=== PATIENT | female | born 1975 | race Caucasian/White ===

== ENCOUNTER 2016-10-08 10:12 | Emergency (ER) | payer BC ==
[~2016-10-08] VITALS: Ht 160 cm; Wt 112.8 kg
[~2016-10-08 10:12] MED LIST: ALBU18HF2 IH; PHENTERMINE HCL; PRED10TA PO
--- OUTSIDE RECORDS SUMMARY | 2016-10-08 10:16 | XMS REPORT | Continuity of Care Document ---
Author Author [facility] Organization [facility] Address Unknown Phone Unavailable Support Name Relationship Address Phone FABIAN FIGUEROA MD Caregiver [address] [place] [address] [place] [phone] SALVADOR TORRES Next Of Kin [address] [facility] [address] [place] [address] Advance Directives Directive Response Recorded Date/Time Advanced Directives Type None 09/17/14 7:07am Problems Medical Problems Problem Onset Date Status Viral upper respiratory infection Unknown Active Viral upper respiratory infection Unknown Active Medications Medication Dose Route Sig Days/Qty Instructions Order Date Discontinued Date Status [Phentermine Hcl] 09/17/14 Active Albuterol Sulfate 2-4 Puff IH EVERY 4 HOURS For SHORTNESS OF AIR/WHEEZING 1 Qty 09/17/14 Active Prednisone 10 Mg PO DIRECTED 24 Qty 5 Tablets by mouth daily for 2 days THEN, 09/17/14 Active Social History Social History Problem Response Recorded Date/Time Hx Alcohol Use No 09/17/2014 7:15am Tobacco Usage none 09/17/2014 7:27am Query Response Start Date Stop Date Smoking Status Former smoker Hospital Discharge Instructions No hospital discharge instructions. Plan of Care No plan of care. Functional Status Query Response Date Recorded Physical Hygiene Self September 17, 2014 7:15am Disabilities None September 17, 2014 7:15am Devices Used None September 17, 2014 7:15am Dressing Self September 17, 2014 7:15am Ambulation Self September 17, 2014 7:15am Diet Self September 17, 2014 7:15am Mental Status Alert Oriented September 17, 2014 8:52am Disabilities None September 17, 2014 7:15am Devices Used None September 17, 2014 7:15am Physical Hygiene Self September 17, 2014 7:15am Dressing Self September 17, 2014 7:15am Ambulation Self September 17, 2014 7:15am Diet Self September 17, 2014 7:15am Allergies, Adverse Reactions, Alerts No known allergies. Immunizations No immunization records. Vital Signs Acute Vital Signs Vital Response Date/Time Temperature (Fahrenheit) 98.1 deg F (96.8 - 99.1) Temperature (Calculated Celsius) 36.10534 degrees C (36.0 - 37.3) Pulse Rate (adult) 68 bpm (60 - 100) Respiratory Rate 20 breaths/min (10 - 20) O2 Sat by Pulse Oximetry 99 % (90 - 100) Blood Pressure 154/74 mm Hg Height 5 ft 3 in Weight 308 lb Body Mass Index 54.0 kg/m^2 Results Test Source Date Result Interp. Ref. Range Comments Mycoplasma pneumoniae (PCR) September 17, 2014 7:10am Not detected - Has specimen been collected/obtained? Y Chlamydia pneumoniae DNA (PCR) September 17, 2014 7:10am Not detected - Has specimen been collected/obtained? Y Bordetella parapertussis DNA (PCR) September 17, 2014 7:10am Not detected - Has specimen been collected/obtained? Y Respiratory Syncytial Virus (PCR) September 17, 2014 7:10am Not detected - Has specimen been collected/obtained? Y Parainfluenza Type 4 (PCR) September 17, 2014 7:10am Not detected - Has specimen been collected/obtained? Y Parainfluenza Type 3 (PCR) September 17, 2014 7:10am Not detected - Has specimen been collected/obtained? Y Parainfluenza Type 2 (PCR) September 17, 2014 7:10am Not detected - Has specimen been collected/obtained? Y Parainfluenza Type 1 (PCR) September 17, 2014 7:10am Not detected - Has specimen been collected/obtained? Y Influenza Virus Type B (PCR) September 17, 2014 7:10am Not detected - Has specimen been collected/obtained? Y Influenza Virus Type A (PCR) September 17, 2014 7:10am Not detected - Has specimen been collected/obtained? Y Enterovirus/Rhinovirus (PCR) September 17, 2014 7:10am Not detected - Has specimen been collected/obtained? Y Human Metapneumovirus (PCR) September 17, 2014 7:10am Not detected - Has specimen been collected/obtained? Y Coronavirus Type OC43 (PCR) September 17, 2014 7:10am Not detected - Has specimen been collected/obtained? Y Coronavirus Type NL63 (PCR) September 17, 2014 7:10am Not detected - Has specimen been collected/obtained? Y Coronavirus Type HKU1 (PCR) September 17, 2014 7:10am Not detected - Has specimen been collected/obtained? Y Coronavirus Type 229E (PCR) September 17, 2014 7:10am Not detected - Has specimen been collected/obtained? Y Adenovirus (PCR) September 17, 2014 7:10am Not detected - Has specimen been collected/obtained? Y Hepatitis B Surface Ab Concentrat September 01, 2014 11:48am Negative - Lab Scanned Report September 06, 2014 12:46pm REFERENCE LAB - Measles/Mumps/Rubella Immunity September 01, 2014 11:48am - - . <0.91= Negative. 0.91 - 1.09=Equivocal . >1.09=Positive Positive results suggest response to immunization or prior exposure. Measles IgG performed at [facility], [address] [place] [address] Emergency Veterinarian Renaldo Olivarez, Mumps IgG Antibody Index September 01, 2014 11:48am 0.94 OD Ratio L - Mumps IgG performed at [facility], [address] [place], [place] [address]Medical Director Renaldo Olivarez, Mumps Virus IgG Antibody September 01, 2014 11:48am Equivocal H - Rubella Screen September 01, 2014 11:48am Positive - Rubeola (Measles) IgG Ab Index September 01, 2014 11:48am 1.32 OD Ratio - Measles IgG performed at [facility], [address] [place], [place] [address]Medical Director Renadlo Olivarez, Rubeola (Measles) IgG Antibody September 01, 2014 11:48am Positive - TB Test (T-Spot) September 01, 2014 11:48am Negative - It is recommended that Borderline and Invalid results beretested with a new speicmen. T-SPOT TB tested at [facility], [address] [place] [address]. CLIA#[id number] Varicella-Zoster IgG Ab Index Value September 01, 2014 11:48am 2.25 OD Ratio - Varicella Zoster IGG performed at [facility], [address] [place] [address] Emergency Veterinarian Renaldo Olivarez DO Varicella-Zoster IgG Antibody September 01, 2014 11:48am Positive - Name: SAFIA RUGGIERO Jenniffer Unit #: [id number] : 1975 Sex: F Loc / Svc: ED DOS: 09/17/14 Signed Report #: [id number] DIAGNOSTIC IMAGING REPORT TYPE OF EXAM: CHEST, PA & LATERAL Dictated By: CELINE GAR MD INDICATION: ITS.REASON: COUGH, FEVER CHEST 2-VIEWS UPRIGHT (PA & LAT) COMPARISON: None FINDINGS: The lungs are clear without evidence of focal abnormal airspace opacity. There is no pleural effusion or pneumothorax. The heart size, mediastinal contours and pulmonary vascularity are within normal limits. There is no significant skeletal abnormality. IMPRESSION: No acute cardiopulmonary disease. . Procedures No known history of procedures. Encounters Encounter Location Date/Time Registered Emergency Room [facility] 09/17/14 7:03am Recent Diagnosis
[2016-10-08 10:18] VITALS: Ht 160 cm; Wt 112.8 kg
[2016-10-08] MEDS ORDERED: PHEN-412 PO (10:55)
[2016-10-08] MEDS ORDERED: SIME125C PO (10:57)
[2016-10-08] MEDS ORDERED: IBUP-1724 PO (10:57)
--- NOTE | 2016-10-08 11:10 | NUR ---
REPORT REPORT TO AND CARE ASSUMED BY VAHID LUTZ
--- NOTE | 2016-10-08 11:20 | ERPDOC ---
Departure Disposition Decision Date: Oct 08, 2016 Disposition Decision Time: 13:52 Disposition: 01 DISCHARGED HOME, SELF-CARE Impression Impression Impression: Primary Impression: Gastroenteritis Severity: Moderate Condition: Stable Seen By: Physician only Patient Instructions: Gastroenteritis (ED) Problems/Meds/Labs Reviewed?: Yes Medications reviewed and manag: Yes Departure Forms: Return to Work/School Permit Return to Work/School Date: Oct 10, 2016 Follow up care ordered?: Yes Mental Status: Alert, Oriented Scripts Hydrocodone/Apap ([place] 5-325 Tablet) 5-325 Tablet 1-2 TAB PO Q6H Y for PAIN, #10 TAB Prov: SAJAN BELL MD 10/08/16 Ondansetron (Zofran Odt) 4 Mg Tab.rapdis 4 MG PO Q6HR Y for NAUSEA &/OR VOMITING, #10 TAB Oral disintegrating tablet Prov: SAJAN BELL MD 10/08/16 HPI - Abdominal Pain General Chief Complaint: Abdominal Pain Stated Complaint: ABD PAIN Time Seen by Provider: 11:19 Source: patient History/Exam Limitations: no limitations HPI - Abdominal Pain Initial Comments Patient is a 40-year-old female presents emergency room for evaluation of abdominal pain nausea vomiting. Patient was at a picnic yesterday, ate some food that she admits was sitting out for a long time. Last night patient developed some epigastric abdominal pain with associated nausea this morning started having emesis. Patient unable to keep down food or fluid this morning. Patient decided present to the ER for evaluation. Occurred At: home Onset: Rapid Duration: 6-12 hrs Pain Scale: Now & Worst: 8/10 Quality: sharpness Location: epigastric Allergies: Coded Allergies: No Known Allergies (Unverified , 10/08/16) Past History Past Medical History Metabolic: diabetes Surgical History Denies Surgeries Reproductive/: tubal ligation Social History Smoking Status: Current some day smoker Substance Use Type: does not use Alcohol Intake: none Review of Systems Constitutional Constitutional: appetite decrease, weakness, DENIES: chills, dizziness, fever Eyes Vision: DENIES: loss of visual ayers ENMT Sinuses: DENIES: congestion Mouth/Throat: DENIES: sore throat Cardiovascular Cardiac: DENIES: chest pain, dyspnea on exertion Pulmonary Respiratory: DENIES: cough, sputum GI Upper Abdomen: nausea, pain, vomiting Lower Abdomen: pain, DENIES: constipation, diarrhea General: DENIES: frequency, urgency Musculoskeletal General: DENIES: cramps, pain, weakness Integumentary Skin: DENIES: color change, itching, rash Endocrine Endocrine: DENIES: heat/cold intolerance Hematologic/Lymphatic Hematologic/Lymphatic: DENIES: anemia Physical Exam General General Nourishment: well nourished, well developed, obese General Body Habitus: well groomed Vitals and Pain First Documented Vital Signs Date Time Temp Pulse Resp B/P Pulse Ox O2 Delivery O2 Flow Rate FiO2 10/08/16 10:18 98.1 54 24 165/72 100 Room Air Weight: Kilograms: 112.800 Height (feet): 5 Height (inches): 3.00 Triage Pain Scale: RN VS reviewed by Provider: Yes Eyes (brief) Eyes Brief: found: EOMI ENMT (brief) ENMT Brief: FOUND: mucosa moist, normal dentition, NOT FOUND: nasal erythema, pharnyx erythema, tonsillar deviation Neck (brief) Neck: NOT FOUND: adenopathy, spasm, tenderness Respiratory (brief) Respiratory: FOUND: clear all ayers, equal bilaterally, NOT FOUND: rales, wheezes Cardiovascular (brief) Cardiac: FOUND: regular rate, regular rhythm Capillary Refill: <2 sec Abdomen (brief) Abdominal Brief: FOUND: bowel normo active x4, soft, tender (mild diffuse tenderness not localizing), NOT FOUND: distended Lymphatic (brief) Lymphatic Brief: NOT FOUND: adenopathy Musculoskeletal (brief) Musculoskeletal Brief: NOT FOUND: spasm, tenderness Integumentary (brief) Integumentary Brief: FOUND: dry, pink, warm, NOT FOUND: rash Neurologic (brief) Neurological Brief: FOUND: CN w/o gross def to obs, motor-no gross deficits, sensory-no gross deficits Psychiatric (brief) Psychiatric Brief: FOUND: alert, oriented Differential Diagnoses Considering: Appendicitis, Aortic Dissection, Biliary Colic, Bowel Obstruction , Cholecystitis, Constipation, Diverticulitis, Gastroenteritis, GERD, Hernia, IBS, Ileus, Neoplasm, Pancreatitis, Pneumonia, Pyelonephritis, Renal Colic, Ulcer, Ulcerative Colitis, UTI, Volvulus Progress Results/Orders Orders Procedure Category Date Status Time Iv Lock (Ed Only) EDM 10/08/16 Transmitted 11:23 Cbc W/Auto LAB 10/08/16 Complete Diff-Reflex Manual 11:23 Cmp - Comprehensive LAB 10/08/16 Complete Metabolic 11:23 Lipase LAB 10/08/16 Complete 11:23 Normal Saline (Normal PHA 10/08/16 Complete Saline Iv) 11:30 Ondansetron Inj PHA 10/08/16 Complete (Zofran) 11:30 Morphine Sulfate PHA 10/08/16 Complete (Morphine) 11:30 UA, LAB 10/08/16 Complete Dip&Micro(Complete) & 11:32 Kub W/Upright RAD 10/08/16 Resulted 12:07 Lab Results Laboratory Tests Test 10/08/16 11:32 10/08/16 11:40 Urine Collection Type Voided-not cc-midstr Urine Color Red Urine Turbidity Sl cloudy Urine pH 7.0 Urine Specific [place] 1.020 Urine Protein 1+ Urine Glucose (UA) Negative Urine Ketones Negative Urine Blood 3+ Urine Nitrite Negative Urine Bilirubin Negative Urine Urobilinogen 0.2EU/DL Urine Leukocyte Esterase Negative Urine RBC 50-200/HPF Urine WBC 3-5/HPF Urine Squamous Epithelial Cells 0-5 Urine Bacteria Trace Urine Culture Indicated Cult not indicated White Blood Count 8.6T/MM3 Red Blood Count 3.93M/MM3 Hemoglobin 8.3GM/DL Hematocrit 27.8% Mean Corpuscular Volume 70.7UM3 Mean Corpuscular Hemoglobin 21.1UUG Mean Corpuscular Hemoglobin Concent 29.9GM/DL RDW Standard Deviation 42.4FL Platelet Count 220T/MM3 Mean Platelet Volume 11.7UM3 Immature Granulocyte % (Auto) 0.1% Neutrophils (%) (Auto) 77.8% Lymphocytes (%) (Auto) 17.9% Monocytes (%) (Auto) 3.9% Eosinophils (%) (Auto) 0.2% Basophils (%) (Auto) 0.1% Absolute Immature Granulocyte (auto 0.01T/MM3 Absolute Neutrophils (auto) 6.7T/MM3 Absolute Lymphocytes (auto) 1.5T/MM3 Absolute Monocytes (auto) 0.3T/MM3 Absolute Eosinophils (auto) 0.0T/MM3 Absolute Basophils (auto) 0.0T/MM3 Turbidity < 20 Sodium Level 142MEQ/L Potassium Level 3.7MEQ/L Chloride Level 106MEQ/L Carbon Dioxide Level 25MEQ/L Anion Gap 11MEQ/L Blood Urea Nitrogen 16.0MG/DL Creatinine 0.7MG/DL Glomerular Filtration Rate Calc 93 BUN/Creatinine Ratio 23RATIO Glucose Level 104MG/DL Calculated Osmolality 274MOSM/KG Calcium Level 8.7MG/DL Total Bilirubin 0.40MG/DL Icterus Index < 2 Aspartate Amino Transf (AST/SGOT) 14U/L Alanine Aminotransferase (ALT/SGPT) 29U/L Alkaline Phosphatase 66U/L Total Protein 6.5G/DL Albumin 3.5G/DL Globulin 3.0G/DL Albumin/Globulin Ratio 1.2RATIO Lipase 74U/L Chemistry Specimen Hemolysis < 15 Medications Current ED Medications Sodium Chloride (Normal Saline IV) 1,000 ml @ 999 mls/hr Q1H1M ONCE IV Last administered on 10/08/16 11:43; Start 10/08/16 at 11:30; Stop 10/08/16 at 12:30 ; Status DC Ondansetron HCl (Zofran) 4 mg O ONCE IV Last administered on 10/08/16 11:43; Start 10/08/16 at 11:30; Stop 10/08/16 at 11:31; Status DC Morphine Sulfate (Morphine) 4 mg O ONCE IV Last administered on 10/08/16 11: 43; Start 10/08/16 at 11:30; Stop 10/08/16 at 11:31; Status DC Xray Xray : Xray: KUB Upright Interpretation: Normal, Reviewed Written Report SAJAN BELL MD Oct 08, 2016 11:19
[2016-10-08] MEDS ORDERED: MORPHINE SULFATE 4 MG SYRINGE IV ONE (11:30)
[2016-10-08] MEDS ORDERED: NORMAL SALINE 1,000 ML IV ONE (11:30)
[2016-10-08] MEDS ORDERED: ONDANSETRON 4mg/2ml INJECTION IV ONE (11:30)
--- OUTSIDE RECORDS SUMMARY | 2016-10-08 11:30 | XMS REPORT | Continuity of Care Document ---
Author Author [facility] Organization [facility] Address Unknown Phone Unavailable Support Name Relationship Address Phone FABIAN FIGUEROA MD Caregiver [address] [place] [address] [place] [phone] SALVADOR TORRES Next Of Kin [address] [facility] [address] [place] [address] Advance Directives Directive Response Recorded Date/Time Advanced [...] F (96.8 - 99.1) Temperature (Calculated Celsius) 36.08689 degrees C (36.0 - 37.3) Pulse Rate [...] or prior exposure. Measles IgG performed at [facility], [address] [place] [address] Die Stamping Press Operator Renaldo Olivarez, Mumps IgG Antibody Index September 01, 2014 11:48am 0.94 OD Ratio L - Mumps IgG performed at [facility], [address] [place], [place] [address]Medical Director Renaldo Olivarez, Mumps Virus IgG Antibody September 01, 2014 11:48am Equivocal H - Rubella Screen September 01, 2014 11:48am Positive - Rubeola (Measles) IgG Ab Index September 01, 2014 11:48am 1.32 OD Ratio - Measles IgG performed at [facility], [address] [place], [place] [address]Medical Director Renaldo Olivarez, Rubeola (Measles) IgG Antibody September 01, 2014 11:48am Positive - TB Test (T-Spot) September 01, 2014 11:48am Negative - It is recommended that Borderline and Invalid results beretested with a new speicmen. T-SPOT TB tested at [facility], [address] [place] [address]. CLIA#[id number] Varicella-Zoster IgG Ab Index Value September 01, 2014 11:48am 2.25 OD Ratio - Varicella Zoster IGG performed at [facility], [address] [place] [address] Die Stamping Press Operator Renaldo Olivarez DO Varicella-Zoster IgG Antibody September 01, 2014 11:48am Positive - Name: SAFIA RUGGIERO Jenniffer Unit #: [id number] : 1975 Sex: F Loc / Svc: ED DOS: 09/17/14 Signed Report #: [id number] DIAGNOSTIC IMAGING REPORT TYPE OF EXAM: CHEST, [...] Encounters Encounter Location Date/Time Registered Emergency Room [facility] 09/17/14 7:03am Recent Diagnosis
[2016-10-08 11:52] LABS: BLOOD, URINE 3+ (NEGATIVE); COLOR,URINE RED (YELLOW); LEUKOCYTE ESTERASE ,URINE NEGATIVE (NEGATIVE); NITRITE,URINE NEGATIVE (NEGATIVE); UROBILINOGEN,URINE 0.2 EU/DL (NORMAL)
[2016-10-08 11:55] LABS: BASOPHILS % (AUTO) 0.1 % (0-2); EOSINOPHILS % (AUTO) 0.2 % (0-4); HCT - HEMATOCRIT 27.8 % (36-46); HGB - HEMOGLOBIN 8.3 GM/DL (12-16); IMMATURE GRANULOCYTE # (AUTO) 0.01 T/MM3 (0.00-0.03); IMMATURE GRANULOCYTE % (AUTO) 0.1 % (0.0-0.5); LYMPHOCYTES # (AUTO) 1.5 T/MM3 (1-4.8); LYMPHOCYTES % (AUTO) 17.9 % (23-45); MEAN CORPUSCULAR HGB 21.1 UUG (26-34); MEAN CORPUSCULAR HGB CONC(MCHC 29.9 GM/DL (31-37); MEAN CORPUSCULAR VOLUME 70.7 UM3 (80-100); MEAN PLATELET VOLUME 11.7 UM3 (9.4-12.4); MONOCYTES # (AUTO) 0.3 T/MM3 (0-0.8); MONOCYTES % (AUTO) 3.9 % (0-9.0); NEUTROPHILS #(AUTO)-ABSOLUTE 6.7 T/MM3 (1.8-7.7); NEUTROPHILS % (AUTO) 77.8 % (33-66); RED BLOOD COUNT 3.93 M/MM3 (4.00-5.20); WBC - WHITE BLOOD COUNT 8.6 T/MM3 (4.5-11.0)
[2016-10-08 12:02] LABS: RBC,URINE 50-200 /HPF (0-3); SQUAMOUS EPITHELIAL CELL,UR 0-5
[2016-10-08 12:03] LABS: ALBUMIN 3.5 G/DL (3.5-5.0); ALBUMIN/GLOBULIN RATIO 1.2 RATIO (1.1-2.2); ALKALINE PHOSPHATASE 66 U/L (38-126); ALT (SGPT) 29 U/L (9-52); ANION GAP 11 MEQ/L (5-15); AST (SGOT) 14 U/L (14-36); BUN/CREATININE RATIO 23 RATIO (6-26); CALCIUM 8.7 MG/DL (8.4-10.2); CHLORIDE 106 MEQ/L (98-107); CO2 - CARBON DIOXIDE 25 MEQ/L (22-30); CREATININE 0.7 MG/DL (0.7-1.2); GLOMERULAR FILTRATION RATE 93; GLUCOSE 104 MG/DL (65-110); LIPASE 74 U/L (23-300); POTASSIUM 3.7 MEQ/L (3.6-5); SODIUM 142 MEQ/L (134-144); TOTAL PROTEIN 6.5 G/DL (6.3-8.2)
[2016-10-08 12:03] LABS: BACTERIA,URINE TRACE (NEGATIVE)
--- NOTE | 2016-10-08 13:12 | DI ---
EXAM: KUB W/UPRIGHT DICTATION LOCATION: [facility] INDICATION: ITS.REASON: epigastric abdominal pain COMPARISON STUDY: None available. FINDINGS: Abdomen: The bowel gas pattern is unremarkable. There is no evidence for bowel obstruction or free intraperitoneal air. No abnormal radiopacities overlying the abdomen. The lung bases are clear. Skeletal Structures: The visualized skeletal structures are within normal limits for the patient's age. IMPRESSION: 1. Nonobstructive bowel gas pattern. .
[2016-10-08] MEDS ORDERED: ONDA4TAB7 PO (13:54)
[2016-10-08] MEDS ORDERED: HYDR-3989 PO (14:12)
[2016-10-08 14:20] VITALS: BP 148/69; PULSE 56; RESP 16; TEMP 98.1; O2SAT 99
== END 2016-10-08 14:20 | disposition home or self-care (01) ==
LOC: ED 10:12
DX: K52.9 Noninfective gastroenteritis and colitis, unspecified (principal)
CPT/HCPCS: 36000; 74020; 80053; 81001; 83690; 85025; 96361; 96374; 96375; 99284; J2405; J7030

== ENCOUNTER 2016-10-14 22:02 | Inpatient (IN) | payer BC ==
[~2016-10-14] VITALS: Ht 160 cm; Wt 110.1 kg
[~2016-10-14 22:02] MED LIST changes: -ALBU18HF2 IH; +HYDR-3989 PO; +IBUP-1724 PO; +ONDA4TAB7 PO; +PHEN-412 PO; -PHENTERMINE HCL; -PRED10TA PO; +SIME125C PO
--- OUTSIDE RECORDS SUMMARY | 2016-10-14 22:05 | XMS REPORT | Continuity of Care Document ---
Author Author [facility] Organization [facility] Address Unknown Phone Unavailable Support Name Relationship Address Phone FABIAN FIGUEROA MD Caregiver [address] [place] [address] [place] [phone] SALVADOR TORRES Next Of Kin [address] [facility] [address] [place] [address] Advance Directives Directive Response Recorded Date/Time Advanced [...] F (96.8 - 99.1) Temperature (Calculated Celsius) 36.03851 degrees C (36.0 - 37.3) Pulse Rate [...] or prior exposure. Measles IgG performed at [facility], [address] [place] [address] Non Destructive Evaluation Manager Renaldo Olivarez, Mumps IgG Antibody Index September 01, 2014 11:48am 0.94 OD Ratio L - Mumps IgG performed at [facility], [address] [place], [place] [address]Medical Director Renaldo Olivarez, Mumps Virus IgG Antibody September 01, 2014 11:48am Equivocal H - Rubella Screen September 01, 2014 11:48am Positive - Rubeola (Measles) IgG Ab Index September 01, 2014 11:48am 1.32 OD Ratio - Measles IgG performed at [facility], [address] [place], [place] [address]Medical Director Renaldo Olivarez, Rubeola (Measles) IgG Antibody September 01, 2014 11:48am Positive - TB Test (T-Spot) September 01, 2014 11:48am Negative - It is recommended that Borderline and Invalid results beretested with a new speicmen. T-SPOT TB tested at [facility], [address] [place] [address]. CLIA#[id number] Varicella-Zoster IgG Ab Index Value September 01, 2014 11:48am 2.25 OD Ratio - Varicella Zoster IGG performed at [facility], [address] [place] [address] Non Destructive Evaluation Manager Renaldo Olivarez DO Varicella-Zoster IgG Antibody September 01, 2014 11:48am Positive - Name: SAFIA RUGGIERO Jenniffer Unit #: [id number] : 1975 Sex: F Loc / Svc: ED DOS: 09/17/14 Signed Report #: [id number] DIAGNOSTIC IMAGING REPORT TYPE OF EXAM: CHEST, [...] Encounters Encounter Location Date/Time Registered Emergency Room [facility] 09/17/14 7:03am Recent Diagnosis
--- OUTSIDE RECORDS SUMMARY | 2016-10-14 22:05 | XMS REPORT | Continuity of Care Document ---
Author Author [facility] Organization [facility] Address Unknown Phone Unavailable Support Name Relationship Address Phone KESHAWN DEE Caregiver [address] [place] [address] Unavailable SAJAN BELL MD Caregiver [address] [place] [address] [place] [address] Unavailable MARICRUZ NUÑEZ Next Of Kin [address] [place] [address] Insurance Providers Guarantor Grisel Ruggiero Address [address] [address] Email [email or web address] Policy Number [id number] Subscriber's Name Grisel Ruggiero Relationship 18 Self Group Number [id number] Chief Complaint and Reason for Visit Chief Complaint Abdominal Pain Reason for Visit Gastroenteritis Problems Active Problems Medical Problem Onset Date Status Viral upper respiratory infection Unknown Acute Viral upper respiratory infection Unknown Acute Past Problems Medical Problem Onset Date Gastroenteritis Unknown Medications Current Home Medications Medication Dose Units Route Directions Days Qty Instructions Start Date Acetaminophen/Hydrocodone Bitart (Benedict 5-325 Tablet) 5-325 Tablet 1-2 Tab Oral Every 6 Hours as needed for Pain 10 Tablet 10/08/16 Ibuprofen 200 Mg Tablet 800 Mg Oral Every 6 Hours 10/08/16 Ondansetron (Zofran Odt) 4 Mg Tab.rapdis 4 Mg Oral Q6h/0300,0900,1500,2100 as needed for Nausea &/Or Vomiting 10 Tablet Oral disintegrating tablet Phentermine Hcl 37.5 Mg Capsule 37.5 Mg Oral Daily 10/08/16 Simethicone (Gas-X) 125 Mg Capsule 125 Mg Oral As Needed 10/08/16 Social History Social History Problem Response Recorded Date/Time Onset Date Status Hx Alcohol Use No 10/08/2016 11:48am Not Applicable Not Applicable Tobacco Usage none 09/17/2014 7:27am Not Applicable Not Applicable Query Response Start Date Stop Date Smoking Status Current some day smoker Hospital Discharge Instructions No hospital discharge instructions. Plan of Care Discharge Date 10/08/16 2:20pm Disposition 01 DISCHARGED HOME, SELF-CARE Condition at Discharge Stable Instructions/Education Provided Gastroenteritis (ED) Forms Provided Return to Work/School Permit Prescriptions See Medication Section Referrals KESHAWN DEE Address: [place] [address] Care Plan and Goals Physician Care Plan Problem: Gastroenteritis Goal: Follow up with primary care provider Instructions: Take medications and follow care plan as discussed/written Functional Status No functional status results. Allergies, Adverse Reactions, Alerts No known allergies. Immunizations Query Response on File Recorded Date/Time Influenza Vaccine Hx no 10/08/16 11:48am Tetanus Diptheria Vaccine History 2015 10/08/16 11:48am Vital Signs Acute Vital Signs Vital Response Date/Time Temperature (Fahrenheit) 98.1 deg F (96.8 - 99.1) 10/08/2016 2:20pm Temperature (Calculated Celsius) 36.26636 degrees C (36.0 - 37.3) 10/08/2016 2:20pm Pulse Rate (adult) 56 bpm (60 - 100) 10/08/2016 2:20pm Respiratory Rate 16 breaths/min (10 - 20) 10/08/2016 2:20pm O2 Sat by Pulse Oximetry 99 % (90 - 100) 10/08/2016 2:20pm Blood Pressure 148/69 mm Hg 10/08/2016 2:20pm Height (Feet) 5 feet 10/08/2016 10:18am Height (Inches) 3.00 inches 10/08/2016 10:18am Weight (Kilograms) 112.800 kg 10/08/2016 10:18am Body Mass Index (BMI) 44.0 10/08/2016 10:18am Results Laboratory Results Test Name Result Units Flags Reference Collection Date/Time Result Date/ Time Comments White Blood Count 8.6 T/MM3 4.5-11.0 10/08/2016 11:40am 10/08/2016 11: 55am Red Blood Count 3.93 M/MM3 L 4.00-5.20 10/08/2016 11:40am 10/08/2016 11: 55am Hemoglobin 8.3 GM/DL L 12-16 10/08/2016 11:40am 10/08/2016 11:55am Hematocrit 27.8 % L 36-46 10/08/2016 11:40am 10/08/2016 11:55am Mean Corpuscular Volume 70.7 UM3 L 80-100 10/08/2016 11:40am 10/08/2016 11:55am Mean Corpuscular Hemoglobin 21.1 UUG L 26-34 10/08/2016 11:40am 2016 11:55am Mean Corpuscular Hemoglobin Concent 29.9 GM/DL L 31-37 10/08/2016 11: 40am 10/08/2016 11:55am RDW Standard Deviation 42.4 FL 36.9-50.2 10/08/2016 11:40am 10/08/2016 11:55am Platelet Count 220 T/MM3 130-400 10/08/2016 11:40am 10/08/2016 11:55am Mean Platelet Volume 11.7 UM3 9.4-12.4 10/08/2016 11:40am 10/08/2016 11 :55am Neutrophils (%) (Auto) 77.8 % H 33-66 10/08/2016 11:40am 10/08/2016 11: 55am Lymphocytes (%) (Auto) 17.9 % L 23-45 10/08/2016 11:40am 10/08/2016 11: 55am Monocytes (%) (Auto) 3.9 % 0-9.0 10/08/2016 11:40am 10/08/2016 11:55am Eosinophils (%) (Auto) 0.2 % 0-4 10/08/2016 11:40am 10/08/2016 11:55am Basophils (%) (Auto) 0.1 % 0-2 10/08/2016 11:40am 10/08/2016 11:55am Immature Granulocyte % (Auto) 0.1 % 0.0-0.5 10/08/2016 11:40am 2016 11:55am Absolute Neutrophils (auto) 6.7 T/MM3 1.8-7.7 10/08/2016 11:40am 2016 11:55am Absolute Lymphocytes (auto) 1.5 T/MM3 1-4.8 10/08/2016 11:40am 2016 11:55am Absolute Monocytes (auto) 0.3 T/MM3 0-0.8 10/08/2016 11:40am 2016 11:55am Absolute Eosinophils (auto) 0.0 T/MM3 0-0.5 10/08/2016 11:40am 2016 11:55am Absolute Basophils (auto) 0.0 T/MM3 0-0.2 10/08/2016 11:40am 2016 11:55am Absolute Immature Granulocyte (auto 0.01 T/MM3 0.00-0.03 10/08/2016 11: 40am 10/08/2016 11:55am Icterus Index < 2 0-7 10/08/2016 11:40am 10/08/2016 12:03pm Chemistry Specimen Hemolysis < 15 0-25 10/08/2016 11:40am 10/08/2016 12:03pm 0-25: Specimen Exhibited No Hemolysis. Turbidity < 20 0-20 10/08/2016 11:40am 10/08/2016 12:03pm Sodium Level 142 MEQ/L 134-144 10/08/2016 11:40am 10/08/2016 12:03pm Potassium Level 3.7 MEQ/L 3.6-5 10/08/2016 11:40am 10/08/2016 12:03pm Chloride Level 106 MEQ/L 98-107 10/08/2016 11:40am 10/08/2016 12:03pm Carbon Dioxide Level 25 MEQ/L 22-30 10/08/2016 11:40am 10/08/2016 12: 03pm Anion Gap 11 MEQ/L 5-15 10/08/2016 11:40am 10/08/2016 12:03pm Blood Urea Nitrogen 16.0 MG/DL 7-17 10/08/2016 11:40am 10/08/2016 12: 03pm Creatinine 0.7 MG/DL 0.7-1.2 10/08/2016 11:40am 10/08/2016 12:03pm BUN/Creatinine Ratio 23 RATIO 6-26 10/08/2016 11:4010/08/2016 12: 03pm Glomerular Filtration Rate Calc 93 10/08/2016 11:40am 10/08/2016 12 :03pm Glucose Level 104 MG/DL 65-110 10/08/2016 11:40am 10/08/2016 12:03pm Calculated Osmolality 274 MOSM/KG 261-280 10/08/2016 11:40am 2016 12:03pm Calcium Level 8.7 MG/DL 8.4-10.2 10/08/2016 11:40am 10/08/2016 12:03pm Total Bilirubin 0.40 MG/DL 0.20-1.30 10/08/2016 11:40am 10/08/2016 12: 03pm Alkaline Phosphatase 66 U/L 38-126 10/08/2016 11:40am 10/08/2016 12: 03pm Total Protein 6.5 G/DL 6.3-8.2 10/08/2016 11:40am 10/08/2016 12:03pm Albumin 3.5 G/DL 3.5-5.0 10/08/2016 11:40am 10/08/2016 12:03pm Globulin 3.0 G/DL 2.4-3.6 10/08/2016 11:40am 10/08/2016 12:03pm Albumin/Globulin Ratio 1.2 RATIO 1.1-2.2 10/08/2016 11:40am 10/08/2016 12:03pm Aspartate Amino Transf (AST/SGOT) 14 U/L 14-36 10/08/2016 11:40am 10/08 12:03pm Alanine Aminotransferase (ALT/SGPT) 29 U/L 9-52 10/08/2016 11:40am 12:03pm Lipase 74 U/L 23-300 10/08/2016 11:40am 10/08/2016 12:03pm Urine Collection Type VOIDED-NOT CC-MIDSTR 10/08/2016 11:32am 10/08 11:59am Urine Color RED YELLOW 10/08/2016 11:32am 10/08/2016 11:59am Urine Turbidity SL CLOUDY CLEAR 10/08/2016 11:32am 10/08/2016 11: 59am Urine Specific [place] 1.020 1.015-1.025 10/08/2016 11:32am 2016 11:59am Urine pH 7.0 5.0-8.0 10/08/2016 11:32am 10/08/2016 11:59am Urine Leukocyte Esterase NEGATIVE NEGATIVE 10/08/2016 11:32am 2016 11:59am Urine Nitrite NEGATIVE NEGATIVE 10/08/2016 11:32am 10/08/2016 11: 59am Urine Protein 1+ A NEGATIVE 10/08/2016 11:32am 10/08/2016 11:59am Urine Glucose (UA) NEGATIVE NEGATIVE 10/08/2016 11:32am 10/08/2016 11 :59am Urine Ketones NEGATIVE NEGATIVE 10/08/2016 11:32am 10/08/2016 11: 59am Urine Urobilinogen 0.2 EU/DL NORMAL 10/08/2016 11:32am 10/08/2016 11: 59am Urine Bilirubin NEGATIVE NEGATIVE 10/08/2016 11:32am 10/08/2016 11: 59am Urine Blood 3+ A NEGATIVE 10/08/2016 11:32am 10/08/2016 11:59am Urine WBC 3-5 /HPF 0-5 10/08/2016 11:32am 10/08/2016 12:03pm Urine RBC 50-200 /HPF H 0-3 10/08/2016 11:32am 10/08/2016 12:03pm Urine Squamous Epithelial Cells 0-5 10/08/2016 11:32am 10/08/2016 12:03pm Urine Bacteria TRACE H NEGATIVE 10/08/2016 11:32am 10/08/2016 12:03pm Urine Culture Indicated CULT NOT INDICATED 10/08/2016 11:3210/08 12:03pm Name: GRISEL RUGGIERO Unit #: [id number] : [id number] Sex: F Admit Date: Loc / Svc: ED Discharge Date: DIAGNOSTIC IMAGING REPORT Report #: [id number] [facility] JENNIFER Montoya EXAM: KUB W/UPRIGHT DICTATION LOCATION: [facility] INDICATION: ITS.REASON: epigastric abdominal pain COMPARISON STUDY: None available. FINDINGS: Abdomen: The bowel gas pattern is unremarkable. There is no evidence for bowel obstruction or free intraperitoneal air. No abnormal radiopacities overlying the abdomen. The lung bases are clear. Skeletal Structures: The visualized skeletal structures are within normal limits for the patient's age. IMPRESSION: 1. Nonobstructive bowel gas pattern. . Procedures No known history of procedures. Encounters Encounter Location Arrival/Admit Date Discharge/Depart Date Attending Provider Departed Emergency Room [facility] 10/08/16 10:12am 10/08/16 2: 20pm SAJAN BELL MD Recent Diagnosis
[2016-10-14] MEDS ORDERED: NORMAL SALINE 1,000 ML IV ONE (22:34)
--- NOTE | 2016-10-14 22:44 | ERPDOC ---
Departure Disposition Decision Date: Oct 15, 2016 Disposition Decision Time: 00:10 Disposition: 02 TO [facility] Impression Impression Impression: Primary Impression: Cholecystitis Severity: Moderate Condition: Improved Seen By: Physician only Referrals: KESHAWN DEE (Family) Problems/Meds/Labs Reviewed?: Yes Medications reviewed and manag: Yes Follow up care ordered?: Yes Mental Status: Alert, Oriented HPI - Abdominal Pain General Chief Complaint: Abdominal Pain Stated Complaint: ABDOMINAL PAIN Time Seen by Provider: 22:22 Source: patient History/Exam Limitations: no limitations HPI - Abdominal Pain Initial Comments 40yo woman presents to the ER for evaluation of crampy, stabbing, epigastric pain. Pts sx all started following a picnic on the ; pt was appropriately evaluated and dx'ed with viral vs toxic GE. She was given norco for pain control. Pt then went to her PCM, who gave her cipro. After taking the cipro, ( on the second dose!) pts diarrhea subsided, but pt began to have a bloating/ crampy abd pain. She has been taking norco for her pain ever since. Pt is also taking phentermine for wt loss; states that she has lost 40+#. Occurred At: home Onset: Gradual, Constant Duration: 1 week Pain Scale: Now & Worst: 6/10 Quality: cramping, sharpness, stabbing Location: RUQ, epigastric Radiation: back Activities at Onset: during/after eating Modifying Factors: IMPROVES WITH: analgesics, rest, WORSE WITH: eating, movement, palpation Hx of Similar Symptoms: No Allergies: Coded Allergies: ondansetron (Verified Allergy, Intermediate, Severe Headache, 10/17/16) Past History Past Medical History Metabolic: diabetes Surgical History Denies Surgeries Reproductive/: tubal ligation Social History Substance Use Type: does not use Alcohol Intake: none Review of Systems GI Upper Abdomen: nausea, pain, DENIES: dysphagia, food intolerances, heartburn/ indigestion, hematemesis, vomiting All other Systems All Other Systems: Reviewed and Negative Physical Exam General General Nourishment: well nourished, well developed, appears stated age, no acute distress, adult, obese General Body Habitus: well groomed Vitals and Pain First Documented Vital Signs Date Time Temp Pulse Resp B/P Pulse Ox O2 Delivery O2 Flow Rate FiO2 10/14/16 22:19 98.6 76 20 125/75 99 Room Air Weight: Kilograms: 107.000 Height (feet): 5 Height (inches): 3.00 Triage Pain Scale: RN VS reviewed by Provider: Yes Normal Exams: Head: Normocephalic w/o trauma Eyes: Pupils are PERRLA w/ EOMI, No scleral icterus, irritation ENMT: No facial trauma, nasal exudates, pharyngeal erythema Neck: Full range of motion, without adenopathy, JVD Lymphatic: No lymphadenopathy Musculoskeletal: No tenderness, or deformity noted Integumentary: No rashes, hives, or bruising noted Neurologic: Patient is alert, and oriented Psychiatric: Patient exhibits, appropriate attention Respiratory (brief) Respiratory: FOUND: clear all ayers, equal bilaterally, symmetrical, NOT FOUND : rales, wheezes Cardiovascular (brief) Cardiac: FOUND: regular rate, regular rhythm, NOT FOUND: click, gallop, murmur , pedal edema, peripheral edema, rub Capillary Refill: <2 sec Pulses: all distal extremities, equal, strong Abdomen (brief) Abdominal Brief: FOUND: bowel normo active x4, soft, tender (TTP in RUQ; pos Stokes's), NOT FOUND: distended, hepatosplenomegaly, pulsatile mass Differential Diagnoses Considering: Biliary Colic, Cholecystitis, Gastroenteritis, GERD, Hepatitis, Hernia, Pancreatitis, Pyelonephritis, Renal Colic, UTI, Volvulus Progress Results/Orders Orders Procedure Category Date Status Time LAB 10/16/16 Complete Qualitative, Urine 05:56 Indocyanine Green PHA 10/16/16 Complete (Ic-Green) 09:33 Bupivacaine 0.25%/Epi PHA 10/16/16 Complete 1:200k (Marcaine/E 09:33 Lidocaine 2% Pf PHA 10/16/16 Complete (Xylocaine 2%) 10:25 Propofol 200mg PHA 10/16/16 Complete (Diprivan) 10:25 Rocuronium (Zemuron) PHA 10/16/16 Complete 10:25 Glycopyrrolate PHA 10/16/16 Complete (Robinul) 10:25 Ondansetron Inj PHA 10/16/16 Complete (Zofran) 10:25 Fentanyl (Fentanyl) PHA 10/16/16 Complete 10:27 Midazolam (Versed) PHA 10/16/16 Complete 10:28 Anesthesia Inhalation PHA 10/16/16 Complete Agent (Anesthesia 10:57 Rocuronium (Zemuron) PHA 10/16/16 Complete 12:23 Fentanyl (Fentanyl) PHA 10/16/16 Complete 12:34 Sugammadex (Bridion) PHA 10/16/16 Complete 12:48 Measure Vital Signs RAYA 10/16/16 In Process 13:22 Ambulate RAYA 10/16/16 In Process 13:22 Regular Diet DIET 10/16/16 Transmitted Dinner Morphine Sulfate Vial PHA 10/16/16 In Process (Morphine Sulfate) 13:30 Morphine Sulfate PHA 10/16/16 In Process (Morphine) 13:30 Manage Incentive RAYA 10/16/16 In Process Spirometer 13:22 Incentive Spirometry RT 10/16/16 Logged 13:22 Ibuprofen (Motrin) PHA 10/16/16 In Process 13:30 Transfer TRANSFER 10/16/16 Complete Hydrocodone/Acetaminophen PHA 10/16/16 In Process (Andrews 5/325) 13:30 Manage Oxygen RAYA 10/16/16 In Process Administration 13:35 Hydromorphone PHA 10/16/16 Complete (Dilaudid) 13:45 Oxygen, Continuous RT 10/16/16 Logged 13:35 Acetaminophen PHA 10/16/16 In Process (Tylenol Regular 18:30 Diphenhydramine PHA 10/16/16 Logged (Benadryl) 19:45 Metoclopramide PHA 10/16/16 Logged (Reglan Inj) 19:45 Lab Results Laboratory Tests Test 10/16/16 04:26 10/16/16 05:30 10/16/16 08:22 10/16/16 09:53 White Blood Count 6.1T/MM3 Red Blood Count 3.90M/MM3 Hemoglobin 8.4GM/DL Hematocrit 28.0% Mean Corpuscular Volume 71.8UM3 Mean Corpuscular Hemoglobin 21.5UUG Mean Corpuscular Hemoglobin Concent 30.0GM/DL RDW Standard Deviation 43.4FL Platelet Count 225T/MM3 Mean Platelet Volume 11.2UM3 Immature Granulocyte % (Auto) 0.2% Neutrophils (%) (Auto) 63.2% Lymphocytes (%) (Auto) 29.2% Monocytes (%) (Auto) 5.1% Eosinophils (%) (Auto) 2.0% Basophils (%) (Auto) 0.3% Absolute Immature Granulocyte (auto 0.01T/MM3 Absolute Neutrophils (auto) 3.9T/MM3 Absolute Lymphocytes (auto) 1.8T/MM3 Absolute Monocytes (auto) 0.3T/MM3 Absolute Eosinophils (auto) 0.1T/MM3 Absolute Basophils (auto) 0.0T/MM3 Turbidity < 20 Sodium Level 146MEQ/L Potassium Level 4.1MEQ/L Chloride Level 106MEQ/L Carbon Dioxide Level 28MEQ/L Anion Gap 12MEQ/L Blood Urea Nitrogen 7.0MG/DL Creatinine 0.8MG/DL Glomerular Filtration Rate Calc 80 BUN/Creatinine Ratio 9RATIO Glucose Level 92MG/DL Calculated Osmolality 279MOSM/KG Calcium Level 8.6MG/DL Total Bilirubin 0.60MG/DL Icterus Index < 2 Aspartate Amino Transf (AST/SGOT) 9U/L Alanine Aminotransferase (ALT/SGPT) 25U/L Alkaline Phosphatase 67U/L Total Protein 6.1G/DL Albumin 3.0G/DL Globulin 3.1G/DL Albumin/Globulin Ratio 1.0RATIO Thyroid Stimulating Hormone (TSH) 1.98MIU/L Chemistry Specimen Hemolysis < 15 Glucometer 93mg/dL 88mg/dL Urine Test Negative Test 10/16/16 16:07 10/16/16 22:45 Glucometer 109mg/dL 98mg/dL Medications Current ED Medications Sodium Chloride (Normal Saline IV) 1,000 ml @ 0 mls/hr Q0M ONCE IV Last administered on 10/14/16 23:18; Start 10/14/16 at 22:34; Stop 10/14/16 at 22:36 ; Status DC Ondansetron HCl (Zofran) 4 mg O ONCE IV Last administered on 10/14/16 23:18; Start 10/14/16 at 22:45; Stop 10/14/16 at 22:46; Status DC Ketorolac Tromethamine (Toradol) 30 mg O ONCE IV Last administered on 23:19; Start 10/14/16 at 22:45; Stop 10/14/16 at 22:46; Status DC Iohexol 1 bottle 1 bottle STK-MED ONCE .ROUTE ; Start 10/14/16 at 23:43; Stop at 23:44; Status DC Sodium Chloride (NS) 100 ml @ As Directed STK-MED ONCE .ROUTE ; Start 10/14/16 at 23:43; Stop 10/14/16 at 23:44; Status DC Sodium Chloride 10 ml 10 ml STK-MED ONCE .ROUTE ; Start 10/14/16 at 23:43; Stop 10/14/16 at 23:44; Status DC Lactated Ringer's (Lactated Ringers) 1,000 ml @ 100 mls/hr Q10H IV Last administered on 10/16/16t 06:40; Start 10/15/16 at 00:22 Consult/PCP Consult/PCP : Physician Contacted: Dr. Degroot Time Called: 00:19 Type of discussion: Phone Consult/PCP CT CT : CT: Abd/Pelvis IV contrast Interpretation: Abnormal (Acute cholecystitis), Discussed w/ Radiologist, Reviewed Written Report ETTA CRANE DO Oct 14, 2016 22:44
--- OUTSIDE RECORDS SUMMARY | 2016-10-14 22:44 | XMS REPORT | Continuity of Care Document ---
Author Author [facility] Organization [facility] Address Unknown Phone Unavailable Support Name Relationship Address Phone FABIAN FIGUEROA MD Caregiver [address] [place] [address] [place] [phone] SALVADOR TORRES Next Of Kin [address] [facility] [address] [place] [address] Advance Directives Directive Response Recorded Date/Time Advanced [...] F (96.8 - 99.1) Temperature (Calculated Celsius) 36.86441 degrees C (36.0 - 37.3) Pulse Rate [...] or prior exposure. Measles IgG performed at [facility], [address] [place] [address] Applications Development Analyst Renaldo Olivarez, Mumps IgG Antibody Index September 01, 2014 11:48am 0.94 OD Ratio L - Mumps IgG performed at [facility], [address] [place], [place] [address]Medical Director Renaldo Olivarez, Mumps Virus IgG Antibody September 01, 2014 11:48am Equivocal H - Rubella Screen September 01, 2014 11:48am Positive - Rubeola (Measles) IgG Ab Index September 01, 2014 11:48am 1.32 OD Ratio - Measles IgG performed at [facility], [address] [place], [place] [address]Medical Director Renaldo Olivarez, Rubeola (Measles) IgG Antibody September 01, 2014 11:48am Positive - TB Test (T-Spot) September 01, 2014 11:48am Negative - It is recommended that Borderline and Invalid results beretested with a new speicmen. T-SPOT TB tested at [facility], [address] [place] [address]. CLIA#[id number] Varicella-Zoster IgG Ab Index Value September 01, 2014 11:48am 2.25 OD Ratio - Varicella Zoster IGG performed at [facility], [address] [place] [address] Applications Development Analyst Renaldo Olivarez DO Varicella-Zoster IgG Antibody September 01, 2014 11:48am Positive - Name: SAFIA RUGGIERO Jenniffer Unit #: [id number] : 1975 Sex: F Loc / Svc: ED DOS: 09/17/14 Signed Report #: [id number] DIAGNOSTIC IMAGING REPORT TYPE OF EXAM: CHEST, [...] Encounters Encounter Location Date/Time Registered Emergency Room [facility] 09/17/14 7:03am Recent Diagnosis
[2016-10-14] MEDS ORDERED: KETOROLAC 30mg/ml INJECTION IV ONE (22:45)
[2016-10-14] MEDS ORDERED: ONDANSETRON 4mg/2ml INJECTION IV ONE (22:45)
[2016-10-14 23:19] LABS: BLOOD, URINE NEGATIVE (NEGATIVE); COLOR,URINE YELLOW (YELLOW); LEUKOCYTE ESTERASE ,URINE NEGATIVE (NEGATIVE); NITRITE,URINE NEGATIVE (NEGATIVE)
[2016-10-14 23:20] LABS: BASOPHILS % (AUTO) 0.3 % (0-2); EOSINOPHILS # (AUTO) 0.1 T/MM3 (0-0.5); HCT - HEMATOCRIT 29.1 % (36-46); HGB - HEMOGLOBIN 8.9 GM/DL (12-16); LYMPHOCYTES # (AUTO) 1.6 T/MM3 (1-4.8); LYMPHOCYTES % (AUTO) 21.9 % (23-45); MEAN CORPUSCULAR HGB 21.3 UUG (26-34); MEAN CORPUSCULAR HGB CONC(MCHC 30.6 GM/DL (31-37); MEAN CORPUSCULAR VOLUME 69.6 UM3 (80-100); MEAN PLATELET VOLUME 10.5 UM3 (9.4-12.4); MONOCYTES # (AUTO) 0.5 T/MM3 (0-0.8); MONOCYTES % (AUTO) 6.4 % (0-9.0); NEUTROPHILS % (AUTO) 70.4 % (33-66); RED BLOOD COUNT 4.18 M/MM3 (4.00-5.20); WBC - WHITE BLOOD COUNT 7.1 T/MM3 (4.5-11.0)
[2016-10-14 23:28] LABS: ANION GAP 12 MEQ/L (5-15); BUN/CREATININE RATIO 11 RATIO (6-26); CALCIUM 9.2 MG/DL (8.4-10.2); CHLORIDE 104 MEQ/L (98-107); CO2 - CARBON DIOXIDE 29 MEQ/L (22-30); CREATININE 0.7 MG/DL (0.7-1.2); GLOMERULAR FILTRATION RATE 93; GLUCOSE 91 MG/DL (65-110); LIPASE 31 U/L (23-300); POTASSIUM 3.8 MEQ/L (3.6-5); SODIUM 145 MEQ/L (134-144)
[2016-10-14] MEDS ORDERED: IOHEXOL 300 MG/ML 100ml INJECTION ONE (23:43)
[2016-10-14] MEDS ORDERED: NORMAL SALINE 100 ML ONE (23:43)
[2016-10-14] MEDS ORDERED: SALINE FLUSH 10ml SYRINGE ONE (23:43)
[2016-10-15] VITALS (7 sets, daily range): BP systolic 112–126; BP diastolic 60–69; PULSE 54–63; RESP 14–18; TEMP 97.4–98.2; O2SAT 95–100; Ht 160 cm; Wt 110.1 kg
[2016-10-15] MEDS ORDERED: ONDANSETRON 4mg/2ml INJECTION IV PRN (00:30)
--- OUTSIDE RECORDS SUMMARY | 2016-10-15 00:31 | XMS REPORT | Continuity of Care Document ---
Author Author [facility] Organization [facility] Address Unknown Phone Unavailable Support Name Relationship Address Phone FABIAN FIGUEROA MD Caregiver [address] [place] [address] [place] [phone] SALVADOR TORRES Next Of Kin [address] [facility] [address] [place] [address] Advance Directives Directive Response Recorded Date/Time Advanced [...] F (96.8 - 99.1) Temperature (Calculated Celsius) 36.06896 degrees C (36.0 - 37.3) Pulse Rate [...] or prior exposure. Measles IgG performed at [facility], [address] [place] [address] Center Mgr Renaldo Olivarez, Mumps IgG Antibody Index September 01, 2014 11:48am 0.94 OD Ratio L - Mumps IgG performed at [facility], [address] [place], [place] [address]Medical Director Renaldo Olivarez, Mumps Virus IgG Antibody September 01, 2014 11:48am Equivocal H - Rubella Screen September 01, 2014 11:48am Positive - Rubeola (Measles) IgG Ab Index September 01, 2014 11:48am 1.32 OD Ratio - Measles IgG performed at [facility], [address] [place], [place] [address]Medical Director Renaldo Olivarez, Rubeola (Measles) IgG Antibody September 01, 2014 11:48am Positive - TB Test (T-Spot) September 01, 2014 11:48am Negative - It is recommended that Borderline and Invalid results beretested with a new speicmen. T-SPOT TB tested at [facility], [address] [place] [address]. CLIA#[id number] Varicella-Zoster IgG Ab Index Value September 01, 2014 11:48am 2.25 OD Ratio - Varicella Zoster IGG performed at [facility], [address] [place] [address] Center Mgr Renaldo Olivarez DO Varicella-Zoster IgG Antibody September 01, 2014 11:48am Positive - Name: SAFIA RUGGIERO Jenniffer Unit #: [id number] : 1975 Sex: F Loc / Svc: ED DOS: 09/17/14 Signed Report #: [id number] DIAGNOSTIC IMAGING REPORT TYPE OF EXAM: CHEST, [...] Encounters Encounter Location Date/Time Registered Emergency Room [facility] 09/17/14 7:03am Recent Diagnosis
[2016-10-15] MEDS: PIPERACILLIN/TAZOBACTAM 3.375 G in NORMAL SALINE 100 ML IV SCH ×4 (00:32→21:23)
[2016-10-15] MEDS: LR 1,000 ML IV SCH ×3 (00:36→17:47)
--- NOTE | 2016-10-15 01:15 | NUR ---
DIABETES PT DENIES BEING A DIABETIC AND IS CONFUSED TO WHY BGM'S WOULD BE ORDERED FOR HER. THIS RN FOUND NO DIABETIC MEDICATIONS LISTED AND HER GLUCOSE ON HER CHEMISTRY PANEL WAS 91.
--- NOTE | 2016-10-15 01:15 | NUR ---
ADMISSION PT ADMITTED TO ROOM 132 FROM ED VIA CART. PT AMBULATED TO HER BED.
--- NOTE | 2016-10-15 01:15 | NUR ---
ADLIB PT UP ADLIB IN HER ROOM. NO PRN PAIN MEDICATION NEEDED AT THIS TIME. PT ALERT AND ORIENTED X3. PT INSTRUCTED TO CALL IF SHE FEELS UNSTEADY. WILL CONTINUE TO MONITOR ESPECIALLY IF NEED FOR PAIN MEDICATION ARISES.
--- NOTE | 2016-10-15 01:15 | NUR ---
CHRONIC ANEMIA PT DISCUSSED WITH THIS RN THAT SHE HAS CHRONIC ANEMIA AND HAD BEEN INSTRUCTED TO TAKE IRON SUPPLEMENTS PER DOCTORS ORDERS. PT WENT ON TO SAY THAT IT INCREASED THE SEVERITY OF HER CONSTIPATION SO SHE STOPPED TAKING IT. PT STATES SHE WILL FOLLOW UP WITH IT AFTER THE PAIN THAT HAS BROUGHT HER TO THE HOSPITAL IS REMEDIED. WILL CONTINUE TO MONITOR.
[2016-10-15] MEDS: MORPHINE SULFATE 4 MG SYRINGE IV PRN ×4 (03:33→21:30)
[2016-10-15 05:26] LABS: BASOPHILS % (AUTO) 0.2 % (0-2); EOSINOPHILS # (AUTO) 0.2 T/MM3 (0-0.5); EOSINOPHILS % (AUTO) 2.3 % (0-4); HCT - HEMATOCRIT 25.1 % (36-46); HGB - HEMOGLOBIN 7.5 GM/DL (12-16); IMMATURE GRANULOCYTE # (AUTO) 0.01 T/MM3 (0.00-0.03); IMMATURE GRANULOCYTE % (AUTO) 0.2 % (0.0-0.5); LYMPHOCYTES % (AUTO) 31.2 % (23-45); MEAN CORPUSCULAR HGB 21.1 UUG (26-34); MEAN CORPUSCULAR HGB CONC(MCHC 29.9 GM/DL (31-37); MEAN CORPUSCULAR VOLUME 70.5 UM3 (80-100); MEAN PLATELET VOLUME 11.2 UM3 (9.4-12.4); MONOCYTES # (AUTO) 0.5 T/MM3 (0-0.8); NEUTROPHILS #(AUTO)-ABSOLUTE 3.8 T/MM3 (1.8-7.7); NEUTROPHILS % (AUTO) 58.1 % (33-66); RED BLOOD COUNT 3.56 M/MM3 (4.00-5.20); WBC - WHITE BLOOD COUNT 6.5 T/MM3 (4.5-11.0)
[2016-10-15 05:45] LABS: ANION GAP 8 MEQ/L (5-15); BUN/CREATININE RATIO 9 RATIO (6-26); CALCIUM 8.6 MG/DL (8.4-10.2); CHLORIDE 106 MEQ/L (98-107); CO2 - CARBON DIOXIDE 28 MEQ/L (22-30); CREATININE 0.8 MG/DL (0.7-1.2); GLOMERULAR FILTRATION RATE 80; GLUCOSE 95 MG/DL (65-110); POTASSIUM 3.7 MEQ/L (3.6-5); SODIUM 142 MEQ/L (134-144)
--- NOTE | 2016-10-15 06:06 | NUR ---
PROVIDER NOTIFICATION DR PLASCENCIA NOTIFIED OF PT A.M. HGB OF 7.5. NO NEW ORDERS GIVEN AT THIS TIME. WILL CONTINUE TO MONITOR.
--- NOTE | 2016-10-15 06:07 | NUR ---
SHIFT SUMMARY PT ALERT AND ORIENTED X3, VITAL SIGNS ARE STABLE ON ROOM AIR, AFEBRILE. DENIES N/V,C/P AND SOA. PT HAS NEEDED ONE DOSE OF PRN IV PAIN MEDICATION. PT IS UP ADLIB TO AND FROM THE BR. MORNING HGB 7.5 PT DENIES SYMPTOMS RELATED TO THE HGB. NOTIFIED TO CALL FOR ASSISTANCE IF PT BECOMES LIGHT HEADED. WILL CONTINUE TO MONITOR.
--- NOTE | 2016-10-15 07:36 | NUR ---
COMFORT C/O ABD DISCOMFORT GOING TO HER BACK. MS 4 MG IVP SLOWLY GIVEN.
[2016-10-15 07:51] LABS: ALBUMIN 2.9 G/DL (3.5-5.0); ALBUMIN/GLOBULIN RATIO 0.9 RATIO (1.1-2.2); ALKALINE PHOSPHATASE 69 U/L (38-126); ALT (SGPT) 22 U/L (9-52); ANION GAP 13 MEQ/L (5-15); AST (SGOT) 15 U/L (14-36); BUN/CREATININE RATIO 10 RATIO (6-26); CALCIUM 8.4 MG/DL (8.4-10.2); CHLORIDE 105 MEQ/L (98-107); CO2 - CARBON DIOXIDE 27 MEQ/L (22-30); CREATININE 0.8 MG/DL (0.7-1.2); GLOMERULAR FILTRATION RATE 80; GLUCOSE 91 MG/DL (65-110); POTASSIUM 3.8 MEQ/L (3.6-5); SODIUM 145 MEQ/L (134-144); TOTAL PROTEIN 6.1 G/DL (6.3-8.2)
--- NOTE | 2016-10-15 08:02 | DI ---
Indication: ITS.REASON: Abd pain; pos Stokes's PROCEDURE: CT ABD/PELVIS W/CONTRAST ONLY: Encounter: Initial Comparison: None Technique: Axial CT images were performed through the abdomen and pelvis after the administration of intravenous contrast. Coronal and sagittal two-dimensional reformats. Automated Exposure Control and Iterative Reconstruction dose reducing techniques were utilized. Contrast: Omnipaque 300 93 mL Findings: The included portions of the lung bases are clear. Heart size normal. No pleural effusion. Liver is fairly homogeneous. The spleen is mildly enlarged. The gallbladder is distended with some pericholecystic fluid and gallbladder wall thickening as well as some dependent sludge or noncalcified gallstones. The CBD is not definitely enlarged. The pancreas is normal in contour. Adrenal glands are normal. Kidneys enhance homogeneously and symmetrically without perinephric collection or hydronephrosis. The abdominal aorta is nonaneurysmal without significant calcific atherosclerotic disease. No retroperitoneal or mesenteric adenopathy. Pelvis: The uterus is tilted slightly to the right. No free fluid. No pelvic sidewall adenopathy. No significant distal colonic diverticulosis or evidence of diverticulitis. A normal appendix is identified. No definite bony destructive process. Impression: Suspect acute versus chronic cholecystitis. .
[2016-10-15 08:51] LABS: RETICULOCYTE % 0.8 % (0.6-1.7)
--- NOTE | 2016-10-15 09:42 | NUR ---
CM CM IN TO VISIT WITH PT. SHE IS ALERT AND ORIENTED. A MALE AND FEMALE FAMILY MEMBER ARE PRESENT. PT PLANS TO RETURN HOME. SHE DENIES DC NEEDS. SHE IS GIVEN CM CONTACT INFORMATION. Addendum: 10/15/16 at 0943 by TASHI GONSALES RN Amended: Links added.
[2016-10-15] MEDS ORDERED: ACETAMINOPHEN 650 MG SUPPOSITORY RECTALLY ONE (09:45)
[2016-10-15] MEDS ORDERED: DiphenhydrAMINE 50 MG/ML INJECTION IV ONE (09:45)
[2016-10-15] MEDS ORDERED: NORMAL SALINE 500 ML IV SCH (09:46)
--- NOTE | 2016-10-15 10:03 | HPPDOC ---
HPI - Adult Date DATE: 10/15/16 TIME: 10:00 General Chief Complaint: Epigastric and RUQ pain History of Present Illness Per Dr. Degroot Past Medical History Past Medical History Patient's Medical History: (1) Morbid obesity with BMI of 40.0-44.9, adult Surgical History Patient's Surgical History: Tubal ligation Current Medications Home Meds Reported Medications Simethicone (Gas-X) 125 Mg Capsule, 125 MG PO PRN 10/08/16 Ibuprofen (Ibuprofen) 200 Mg Tablet, 800 MG PO Q6H, TAB 10/08/16 Phentermine HCl (Phentermine HCl) 37.5 Mg Capsule, 37.5 MG PO DAILY 10/08/16 Discontinued Scripts Hydrocodone/Apap ([place] 5-325 Tablet) 5-325 Tablet, 1-2 TAB PO Q6H Y for PAIN, # 10 TAB Prov:SJAAN BELL MD 10/08/16 Ondansetron (Zofran Odt) 4 Mg Tab.rapdis, 4 MG PO Q6HR Y for NAUSEA &/OR VOMITING, #10 TAB Oral disintegrating tablet Prov:SAJAN BELL MD 10/08/16 Allergies: Coded Allergies: No Known Allergies (Unverified , 10/08/16) Family History Family History: Adopted. Biologic Mother - DM ancestry Social History Smoking Status: Never smoker Substance Use Type: does not use Alcohol Intake: none Advance Directives: No DPOA for Healthcare Only GS Review of Systems General REPORTS fever (on Saturday) Gastrointestional REPORTS nausea (and vomiting about a week ago after eating rabbit) Genitourinary REPORTS other (irregular menstral cycle) 10-point Review of Systems otherwise negative except HPI GS Physical Exam Vital Signs Date Time Temp Pulse Resp B/P Pulse Ox O2 Delivery O2 Flow Rate FiO2 10/15/16 07:34 16 10/15/16 07:27 97.6 55 112/60 98 Room Air Height (Feet): 5 Height (Inches): 3.00 Weight (Kilograms): 107.100 BMI 41.8 Laboratory Laboratory Tests 10/14/16 23:14 10/15/16 04:27 Laboratory Tests 10/14/16 23:14 10/15/16 04:27 GS Assessment & Plan Code Status Full Code Hospital Course Summary Disclaimer The visit summary below is not to be considered part of the above Progress Note. FRANCISCO BRINK APRN Oct 15, 2016 10:03
[2016-10-15] MEDS ORDERED: NS 500 ML IV PRN (10:30)
--- NOTE | 2016-10-15 10:46 | CONSPD ---
INÉSJACLYN D 10/15/16 1014: Consultation Info Date DATE: 10/15/16 TIME: 10:01 Date of Consultation: Oct 15, 2016 Attending Physician: Dr. Degroot Hospitalist - Dr. Hagan Reason for Consultation: Anemia HPI - Adult Date DATE: 10/15/16 TIME: 10:01 General Chief Complaint: Abdominal pain History of Present Illness Grisel Ray is seen in consultation from Dr. Degroot for further evaluation of anemia. She was admitted on 10/14/16 for acute on chronic cholecystitis. Her abdominal pain, nausea and vomiting actually started on , and initially was attributed to "food poisoning". However, her symptoms persisted, and on re-evaluation she was found to have acute cholecystitis. She reports a hx of chronic anemia, but cannot tolerate iron pills b/c of severe constipation, even though her hgb improves after starting them. She's had anemia for several years, and has had problems with weakness and lightheadedness and near syncope with change in positions x3 years. With near syncope, she gets tunnel vision also, but just pushes through her symptoms until they resolve. She denies black/bloody stools, hematemesis, but does have hemorrhoids which occasionally cause mild bleeding (last time this occurred was about a month ago). She tends to bruise easily. She also has had palpitations for years, and will have problems catching her breath and becomes anxious when her heart starts pounding. She was diagnosed with a heart murmur when she was (22 years ago), but never had a w/u. She has been on Phentermine since 2015, and has lost about 40 lbs. She denies any respiratory or symptoms , no fever or chills. Labs showed a worsening microcytic anemia from 8.9 to 7.5 this am. Na slightly elevated at 145. Past Medical History Past Medical History Patient's Medical History: (1) Anemia (2) Borderline diabetes (3) Murmur, cardiac (4) Morbid obesity with BMI of 40.0-44.9, adult Surgical History Patient's Surgical History: BTL Current Medications Home Meds Reported Medications Simethicone (Gas-X) 125 Mg Capsule, 125 MG PO PRN 10/08/16 Ibuprofen (Ibuprofen) 200 Mg Tablet, 800 MG PO Q6H, TAB 10/08/16 Phentermine HCl (Phentermine HCl) 37.5 Mg Capsule, 37.5 MG PO DAILY 10/08/16 Discontinued Scripts Hydrocodone/Apap ([place] 5-325 Tablet) 5-325 Tablet, 1-2 TAB PO Q6H Y for PAIN, # 10 TAB Prov:SAJAN BELL MD 10/08/16 Ondansetron (Zofran Odt) 4 Mg Tab.rapdis, 4 MG PO Q6HR Y for NAUSEA &/OR VOMITING, #10 TAB Oral disintegrating tablet Prov:SAJAN BELL MD 10/08/16 Allergies: Coded Allergies: No Known Allergies (Unverified , 10/08/16) Family History Family History: Largely unknown. She was adopted. She is 25% [place] . Positive family hx of anemia. Social History Smoking Status: Current some day smoker (started smoking at age 22; used to smoke up to 1/2 ppd; now only smokes when "stressed") Substance Use Type: does not use Alcohol Intake: none Marital Status: Advance Directives: No DPOA for Healthcare Only Social History Comments PCP - [facility] Review of Systems Constitutional: REPORTS: dizziness, fatigue, weakness, DENIES: fever Eyes Vision: REPORTS: other (glasses), DENIES: vision changes ENMT Sinuses: NOT FOUND: congestion, rhinorrhea Mouth/Throat: DENIES: sore throat Cardiovascular DENIES: chest pain, dyspnea on exertion Vascular: DENIES: pedal edema Pulmonary Respiratory: DENIES: cough, dyspnea GI Upper Abdomen: nausea, pain, vomiting Lower Abdomen: constipation, DENIES: blood in stool, melena General: DENIES: dysuria, urgency : para (2) Musculoskeletal General: DENIES: pain Integumentary Skin: DENIES: infections, rash Neurological General: syncope (near), DENIES: headache, memory disturbances Hematologic/Lymphatic anemia, easy bruising, DENIES: bleeding gums, frequent nosebleeds All Other Systems All Other Systems: Reviewed (remainder of 10-point ROS Neg.) Physical Exam General General Nourishment: well nourished, well developed, obese Vital Signs Vital Signs Date Time Temp Pulse Resp B/P Pulse Ox O2 Delivery O2 Flow Rate FiO2 10/15/16 07:34 16 10/15/16 07:27 97.6 55 112/60 98 Room Air Height (Feet): 5 Height (Inches): 3.00 Eyes Brief: FOUND: PERRL, NOT FOUND: scleral icterus ENMT Brief: FOUND: mucosa moist, NOT FOUND: pharnyx erythema Neck Brief: NOT FOUND: adenopathy, nuchal rigidity Respiratory Auscultation: FOUND: normal, NOT FOUND: rales, rhonchi, wheezes Cardiovascular Auscultation: FOUND: S1, S2, regular Murmur: FOUND: systolic (2/6) Peripheral Pulses: 2+: Dorasalis Pedis (L), Dorsalis Pedis (R), Posterior Tibial (L), Posterior Tibial (R), Radial (L), Radial (R) Edema: 0: Anasarca, Arm (L), Arm (R), Face, Leg (L), Leg (R) Abdomen Inspection: FOUND: other (abdominal exam deferred - Nabor Bernal just examined her abdomen, and she was tender epigastric and RUQ), NOT FOUND: distention Auscultation: FOUND: hypoactive Lymphatic (brief) Lymphatic Brief: NOT FOUND: adenopathy Musculoskeletal (brief) Musculoskeletal Brief: NOT FOUND: tenderness Integumentary (brief) Integumentary Brief: FOUND: dry, pink, warm Integumentary General: FOUND: dry, warm Color: FOUND: pink Neurologic (brief) Neurological Brief: FOUND: cranial 2-12 intact, motor Neurologic RN Documented GCS Eye Opening: Verbal: Motor: Total: Psychiatric (brief) FOUND: alert, attentive, normal affect, oriented Laboratory Laboratory Tests Test 10/14/16 23:14 10/15/16 04:27 10/15/16 05:45 White Blood Count 7.1T/MM3 6.5T/MM3 Red Blood Count 4.18M/MM3 3.56M/MM3 Hemoglobin 8.9GM/DL 7.5GM/DL Hematocrit 29.1% 25.1% Mean Corpuscular Volume 69.6UM3 70.5UM3 Mean Corpuscular Hemoglobin 21.3UUG 21.1UUG Mean Corpuscular Hemoglobin Concent 30.6GM/DL 29.9GM/DL RDW Standard Deviation 40.2FL 41.0FL Platelet Count 296T/MM3 241T/MM3 Mean Platelet Volume 10.5UM3 11.2UM3 Immature Granulocyte % (Auto) 0.0% 0.2% Neutrophils (%) (Auto) 70.4% 58.1% Lymphocytes (%) (Auto) 21.9% 31.2% Monocytes (%) (Auto) 6.4% 8.0% Eosinophils (%) (Auto) 1.0% 2.3% Basophils (%) (Auto) 0.3% 0.2% Absolute Immature Granulocyte (auto 0.00T/MM3 0.01T/MM3 Absolute Neutrophils (auto) 5.0T/MM3 3.8T/MM3 Absolute Lymphocytes (auto) 1.6T/MM3 2.0T/MM3 Absolute Monocytes (auto) 0.5T/MM3 0.5T/MM3 Absolute Eosinophils (auto) 0.1T/MM3 0.2T/MM3 Absolute Basophils (auto) 0.0T/MM3 0.0T/MM3 Urine Collection Type Cleancatch-midstream Urine Color Yellow Urine Turbidity Clear Urine pH 7.0 Urine Specific [place] 1.010 Urine Protein Negative Urine Glucose (UA) Negative Urine Ketones Negative Urine Blood Negative Urine Nitrite Negative Urine Bilirubin Negative Urine Urobilinogen 1.0EU/DL Urine Leukocyte Esterase Negative Urinalysis Comment Microscopic not ind. Turbidity < 20 < 20 Sodium Level 145MEQ/L 145MEQ/L Potassium Level 3.8MEQ/L 3.8MEQ/L Chloride Level 104MEQ/L 105MEQ/L Carbon Dioxide Level 29MEQ/L 27MEQ/L Anion Gap 12MEQ/L 13MEQ/L Blood Urea Nitrogen 8.0MG/DL 8.0MG/DL Creatinine 0.7MG/DL 0.8MG/DL Glomerular Filtration Rate Calc 93 80 BUN/Creatinine Ratio 11RATIO 10RATIO Glucose Level 91MG/DL 91MG/DL Calculated Osmolality 277MOSM/KG 277MOSM/KG Calcium Level 9.2MG/DL 8.4MG/DL Icterus Index < 2 < 2 Lipase 31U/L Chemistry Specimen Hemolysis < 15 < 15 Absolute Reticulocyte Count 0.0344T/MM3 Percent Reticulocyte Count 0.8% Immature Reticulocyte Fraction 12.3% Reticulocyte Hgb Content (CHr) 18.0PG Total Bilirubin 0.50MG/DL Aspartate Amino Transf (AST/SGOT) 15U/L Alanine Aminotransferase (ALT/SGPT) 22U/L Alkaline Phosphatase 69U/L Total Protein 6.1G/DL Albumin 2.9G/DL Globulin 3.2G/DL Albumin/Globulin Ratio 0.9RATIO Glucometer 92mg/dL Impression/Recommendation Problems: (1) Anemia Status: Chronic (2) Hypernatremia Status: Acute (3) Cholecystitis Status: Acute (4) Murmur, cardiac Status: Chronic (5) Borderline diabetes Status: Chronic (6) Morbid obesity with BMI of 40.0-44.9, adult Status: Chronic Impression 40 y/o with acute cholecystitis, microcytic anemia, and cardiac murmur. Recommendation Microcytic anemia - iron studies ordered. Agree with transfusion, as ordered by primary team. Does not tolerate FeSO4 d/t severe constipation. Cardiac murmur, palpitations, hx of phentermine use - check EKG and echocardiogram Hypernatremia - Agree with IVF. Acute cholecystitis - per attending. Cholecystectomy planned (though timing hasn 't been secured yet). Borderline diabetes - monitor glucose. Check A1c. Constipation - recommend routine bowel regimen. Thank you for this consult - we will follow Mrs. Ray along with you during her hospital course. BEBO HAGAN MD 10/15/16 1159: Past Medical History Current Medications Home Meds Reported Medications Simethicone (Gas-X) 125 Mg Capsule, 125 MG PO PRN 10/08/16 Ibuprofen (Ibuprofen) 200 Mg Tablet, 800 MG PO Q6H, TAB 10/08/16 Phentermine HCl (Phentermine HCl) 37.5 Mg Capsule, 37.5 MG PO DAILY 10/08/16 Discontinued Scripts Hydrocodone/Apap ([place] 5-325 Tablet) 5-325 Tablet, 1-2 TAB PO Q6H Y for PAIN, # 10 TAB Prov:SAJAN BELL MD 10/08/16 Ondansetron (Zofran Odt) 4 Mg Tab.rapdis, 4 MG PO Q6HR Y for NAUSEA &/OR VOMITING, #10 TAB Oral disintegrating tablet Prov:SAJAN BELL MD 10/08/16 Allergies: Coded Allergies: No Known Allergies (Unverified , 10/08/16) Impression/Recommendation Problems: (1) Anemia Status: Chronic (2) Hypernatremia Status: Acute Assessment & Plan: POA (3) Cholecystitis Status: Acute (4) Murmur, cardiac Status: Chronic (5) Borderline diabetes Status: Chronic (6) Acid reflux Status: Chronic Qualifiers: Esophagitis presence: esophagitis presence not specified Qualified Codes: K21.9 - Gastro-esophageal reflux disease without esophagitis (7) Morbid obesity with BMI of 40.0-44.9, adult Status: Chronic Recommendation Have independently interviewed and examined pt. Chart reviewed. Case discussed with my PCTS. Above care plan developed with my supervision; agree with above. Rough week-increase ab pain and nausea. Thought was 'food poisoning.' Missed several days of work due to the pain. Pain increased yesterday evening. Nausea. Does not chronic, intermittent acid reflux for which she will use baking soda. Denies foods/liquids catching as she swallow. No tarry dark stools. Occasional blood in stool which she attributes to hemorrhoids. Does have menstrual cycles- will be 'heavy.' Report chronically has had anemia, but not able to tolerate Iron due to significant constipation which worsens with Iron products. Occasional palpitations. Does not slight SOA, but no cough, congestion, or pain with breathing. Lungs: decreased, no distress CV: regular AB: soft obese ND. BS decreased. Tender to deep palpation in RUQ. EXT: +1 edema MSE: awake alert appropriate. Plan: Agree with transfusion. Will check Iron and ferritin levels - if low, pt would benefit from IV iron infusion due to her inability to tolerate oral iron replacement. Start Protonix 40mg IV daily due to acid reflux. SCD for DVT prevention. Continue IVF for hydration due to pt being NPO secondary to cholecystitis. Agree with Zosyn for antimicrobial coverage. Add IS to help promote pulmonary toilet in light of anticipated Sx (and ab pain pt has with deep breathing. Recheck BMP in am due to IVF use. Check TSH in light of Obesity to exclude hypothyroidism. Will follow along with Dr Degroot. JACLYN CONTE APRN Oct 15, 2016 10:14 BEBO HAGAN MD Oct 15, 2016 11:59
[2016-10-15] MEDS: PANTOPRAZOLE 40mg INJECTION IV SCH (14:33)
[2016-10-15 15:10] LABS: HGB - HEMOGLOBIN 8.1 GM/DL (12-16)
--- NOTE | 2016-10-15 22:42 | CONSF ---
DATE OF CONSULTATION 10/15/2016 FINDINGS Mrs. Ray is a 40-year-old female whom I was asked to see late last evening/early this morning through our emergency room facility as a result of her history and physical findings of abdominal pain in conjunction with radiographic evidence indicative for cholecystitis. The patient has been subsequently admitted to our facility for further care. Upon questioning the patient she informs me that her pain actually began about a week ago. States she was having some pain within her epigastric region. Patient states she did present to our emergency room facility initially and was informed that she may indeed have an ulcer. Patient states that she was begun on medical therapy for suspected ulcer. She did follow up with her primary care physician as well in the office during the course of last week. As the week progressed she continued to have ongoing constant pain within the epigastric region. Pain became more severe in nature. She has had a fair amount of nausea as a result of this severe pain. Pain is described as constant in nature and radiating in towards her back. As a result of the increasing ongoing pain she did represent to our emergency room facility late last evening. This morning when the patient was seen she states that she was feeling significantly better after receiving some pain medications. We did note that she was quite anemic upon admission. Upon questioning the patient she states that she had a longstanding history for anemia ever since the of her first child. Patient states she had her first child at about the age of 18. States she has been on iron in the past which always seems to correct her anemia. The patient states she does not like, however, to take the iron for it does cause her severe constipation. PAST MEDICAL HISTORY, PAST SURGICAL HISTORY, MEDICATIONS, ALLERGIES, SOCIAL HISTORY, FAMILY HISTORY, REVIEW OF SYSTEMS Performed by my nurse practitioner, Nabor Bernal APRN. PHYSICAL EXAMINATION GENERAL: Mrs. Ray is a 40-year-old female who upon entering the room this morning did not appear to be in acute distress. She was quite conversant in nature. VITAL SIGNS: Afebrile, normotensive. Current vitals include temperature 97.4, pulse 55, respirations 16, blood pressure 126/69, SAO2 90% 98% on room air. HEENT: Normocephalic. Pupils are equally round and react to light and accommodation. NECK: Supple without lymphadenopathy. CHEST: Clear to auscultation bilaterally. HEART: Regular rate and rhythm. Normal S1 and S2 without gallops, murmurs or clicks. ABDOMEN: Palpation of the abdomen did indeed reveal localized tenderness to her right upper quadrant. She displayed a component of some voluntary guarding. There was, however, no evidence for involuntary guarding or rebound tenderness. I do not appreciate any evidence for hepatomegaly or other abnormal masses. EXTREMITIES: Without clubbing, cyanosis, or edema. NEURO: Cranial nerves II-XII grossly intact. Patient is without focal motor or sensory deficits. LABORATORY/RADIOGRAPHIC EVALUATION The patient had a CBC upon admission and her white count was 7.1. Hemoglobin 8.9. Today repeat hemoglobin was 7.5. White count was 6.5. BMP and lipase were obtained upon admission and found to be within normal limits. Today a CMP was obtained. Her AST, ALT, alkaline phosphatase and total bilirubin are within normal limits. Radiographically, the patient did undergo a CT scan of her abdomen and pelvis. The CT scan revealed the gallbladder to be distended with a component of pericholecystic fluid and gallbladder wall thickening as well as some dependent sludge or noncalcified gallstones. There was no evidence for biliary dilatation. ASSESSMENT 40-year-old female with cholecystitis and finding of marked anemia upon laboratory evaluation. PLAN Last evening when I was notified by the emergency room physician I had requested that she be placed in the hospital on an outpatient basis. I had recommended that she receive antibiotics. Zosyn was begun. Today with her anemia I have consulted the medical/hospitalist system for further evaluation of her anemia. I do believe the patient should undergo transfusion prior to surgery. It was my recommendation, given her findings of acute cholecystitis, that we proceed with surgical intervention/cholecystectomy. I did discuss in detail with the patient and her friend who was present earlier this morning what a laparoscopic, possible robotic-assisted, cholecystectomy would entail and its associated risks which included but were not inclusive of bleeding, infection, potential conversion to an open procedure, potential injury to adjacent structures, especially the common bile duct. The patient understood and agreed with this plan. I informed the patient that unfortunately I have a very long operative day already scheduled today. Her case is not emergent in nature. I informed the patient that if possible we would proceed later this evening with surgical intervention. If, on the other hand, I do not complete my scheduled cases until late this evening as a result of the add-on emergencies, that we would wait until tomorrow morning before proceeding with surgical intervention. Patient understood and agreed. LUCÍA
[2016-10-16] VITALS (26 sets, daily range): BP systolic 104–139; BP diastolic 55–74; PULSE 57–97; RESP 11–18; TEMP 97–99; O2SAT 90–100
[2016-10-16] MEDS: MORPHINE SULFATE 4 MG SYRINGE IV PRN ×4 (01:32→23:16)
[2016-10-16] MEDS: PIPERACILLIN/TAZOBACTAM 3.375 G in NORMAL SALINE 100 ML IV SCH ×4 (03:11→22:46)
--- NOTE | 2016-10-16 05:00 | NUR ---
Chart Check 24 hour chart check completed
[2016-10-16 05:16] LABS: BASOPHILS % (AUTO) 0.3 % (0-2); EOSINOPHILS # (AUTO) 0.1 T/MM3 (0-0.5); HGB - HEMOGLOBIN 8.4 GM/DL (12-16); IMMATURE GRANULOCYTE # (AUTO) 0.01 T/MM3 (0.00-0.03); IMMATURE GRANULOCYTE % (AUTO) 0.2 % (0.0-0.5); LYMPHOCYTES # (AUTO) 1.8 T/MM3 (1-4.8); LYMPHOCYTES % (AUTO) 29.2 % (23-45); MEAN CORPUSCULAR HGB 21.5 UUG (26-34); MEAN CORPUSCULAR VOLUME 71.8 UM3 (80-100); MEAN PLATELET VOLUME 11.2 UM3 (9.4-12.4); MONOCYTES # (AUTO) 0.3 T/MM3 (0-0.8); MONOCYTES % (AUTO) 5.1 % (0-9.0); NEUTROPHILS #(AUTO)-ABSOLUTE 3.9 T/MM3 (1.8-7.7); NEUTROPHILS % (AUTO) 63.2 % (33-66); WBC - WHITE BLOOD COUNT 6.1 T/MM3 (4.5-11.0)
[2016-10-16 05:23] LABS: ALKALINE PHOSPHATASE 67 U/L (38-126); ALT (SGPT) 25 U/L (9-52); ANION GAP 12 MEQ/L (5-15); AST (SGOT) 9 U/L (14-36); BUN/CREATININE RATIO 9 RATIO (6-26); CALCIUM 8.6 MG/DL (8.4-10.2); CHLORIDE 106 MEQ/L (98-107); CO2 - CARBON DIOXIDE 28 MEQ/L (22-30); CREATININE 0.8 MG/DL (0.7-1.2); GLOMERULAR FILTRATION RATE 80; GLUCOSE 92 MG/DL (65-110); POTASSIUM 4.1 MEQ/L (3.6-5); SODIUM 146 MEQ/L (134-144); TOTAL PROTEIN 6.1 G/DL (6.3-8.2)
[2016-10-16 05:52] LABS: THYROID STIM HORMONE-TSH 1.98 MIU/L (0.47-4.68)
--- NOTE | 2016-10-16 06:30 | NUR ---
STATUS PATIENT ALERT AND ORIENTEDX3. PRN MORPHINE WAS ADMINISTRATED FOR PAIN . NPO AFTER 2358 AT10/15. PATIENT AMBULATED TO BATHROOM WITH STANDBY ASSIST. ADEQUATE URINARY OUTPUT.ON ROOM AIR. DENIES CHEST PAIN,SOA,OR N/V AT THIS TIME.CALL LIGHT WITHIN REACH. CONTINUE TO MONITOR.
[2016-10-16] MEDS: LR 1,000 ML IV SCH (06:40)
--- NOTE | 2016-10-16 08:29 | PNSURG ---
Subjective DATE: 10/16/16 TIME: 08:26 Interval History States she slept fairly well during the night. Pain much better than upon admission. Awaiting robotic lap valente later this am. Objective Vital Signs Date Time Temp Pulse Resp B/P Pulse Ox O2 Delivery O2 Flow Rate FiO2 10/16/16 08:18 97.5 63 16 121/70 96 Room Air Height (Feet): 5 Height (Inches): 3.00 Weight (Kilograms): 109.300 BMI 41.8 General Appearance: Alert, Awake, Orientated x 3 Laboratory Item Value Date Time Total Bilirubin 0.60 MG/DL 10/16/16 0426 Aspartate Amino Transf (AST/SGOT) 9 U/L L 10/16/16 042 Alanine Aminotransferase (ALT/SGPT) 25 U/L 10/16/16 0426 Alkaline Phosphatase 67 U/L 10/16/16 0426 Laboratory Tests 10/14/16 23:14 10/15/16 04:27 10/16/16 04:26 Laboratory Tests 10/14/16 23:14 10/15/16 04:27 10/15/16 14:34 10/16/16 04:26 Assessment & Plan Problems: (1) Cholecystitis, acute with cholelithiasis Status: Acute Qualifiers: Biliary obstruction: without biliary obstruction Assessment & Plan: robotic lap valente scheduled for later this am. possible discharge later today or tomorrow DVT Prophylaxis: SCD'S Code Status Full Code Hospital Course Summary Disclaimer The visit summary below is not to be considered part of the above Progress Note. Hospital Course Summary 10-15-2016 40-year-old female with cholecystitis and finding of marked anemia upon laboratory evaluation. PLAN Last evening when I was notified by the emergency room physician I had requested that she be placed in the hospital on an outpatient basis. I had recommended that she receive antibiotics. Zosyn was begun. Today with her anemia I have consulted the medical/hospitalist system for further evaluation of her anemia. I do believe the patient should undergo transfusion prior to surgery. It was my recommendation, given her findings of acute cholecystitis, that we proceed with surgical intervention/cholecystectomy. I did discuss in detail with the patient and her friend who was present earlier this morning what a laparoscopic, possible robotic-assisted, cholecystectomy would entail and its associated risks which included but were not inclusive of bleeding, infection, potential conversion to an open procedure, potential injury to adjacent structures, especially the common bile duct. The patient understood and agreed with this plan. I informed the patient that unfortunately I have a very long operative day already scheduled today. Her case is not emergent in nature. I informed the patient that if possible we would proceed later this evening with surgical intervention. If, on the other hand, I do not complete my scheduled cases until late this evening as a result of the add-on emergencies, that we would wait until tomorrow morning before proceeding with surgical intervention. Patient understood and agreed. Item Value Date Time Hemoglobin 8.4 GM/DL L 10/16/16 0426 Hemoglobin 8.1 GM/DL L 10/15/16 1434 Hemoglobin 7.5 GM/DL L # 10/15/16 0427 Hemoglobin 8.9 GM/DL L 10/14/16 2314 HGB 7.5 = 1 unitr PRBC transfused on 10-15 Recommendation Microcytic anemia - iron studies ordered. Agree with transfusion, as ordered by primary team. Does not tolerate FeSO4 d/t severe constipation. Cardiac murmur, palpitations, hx of phentermine use - check EKG and echocardiogram Hypernatremia - Agree with IVF. Acute cholecystitis - per attending. Cholecystectomy planned (though timing hasn 't been secured yet). Borderline diabetes - monitor glucose. Check A1c. Constipation - recommend routine bowel regimen. 10-15 Hospitalist consult for anemia. 10-16 Robotic assisted lap valente with FireFly imaging, see operative report for details. FRANCISCO BRINK APRN Oct 16, 2016 08:29
[2016-10-16] MEDS: PANTOPRAZOLE 40mg INJECTION IV SCH (08:56)
[2016-10-16] MEDS ORDERED: BUPIVACAINE 0.25%/EPI 1:200,000 30ml SDV ONE (09:33)
--- NOTE | 2016-10-16 09:49 | PNPDOC ---
Subjective Date DATE: 10/16/16 TIME: 09:41 Subjective The patient states she's feeling okay today. She has some mild right upper quadrant pain. No recent nausea or vomiting. No shortness of breath. No difficulties with urination. She does relate a long-standing history of anemia with intolerance of oral iron due to constipation. She denies any lightheadedness now but did have light headedness in the remote past. She denies any shortness of breath or chest pain. She does admit to fatigue. She states she has fibromyalgia but does not take medication for it. She will take ibuprofen at times when she is achy. She denies any recent fevers, chills or sweats. She had vomiting 1 last week of dark material that looked like charcoal. This was after eating Easter dinner and a couple of other family members were sick as well, she thought she had food poisoning. She has not noticed any tarry or black stools. She has some occasional hematochezia which she relates to hard stools causing hemorrhoids to bleed. Objective Vital Signs Vital signs Vital Signs Date Time Temp Pulse Resp B/P Pulse Ox O2 Delivery O2 Flow Rate FiO2 10/16/16 08:18 97.5 63 16 121/70 96 Room Air GEN-alert, oriented, no acute distress HEENT-sclera anicteric, oropharynx is moist NECK-supple CV-regular rate and rhythm CHEST-clear to auscultation bilaterally ABD-soft, mild right upper quadrant tenderness, no rebound, no guarding, normal bowel sounds -no Pak EXT-no edema, SCDs are on NEURO-no focal deficits SKIN-warm and dry and without rashes Height (Feet): 5 Height (Inches): 3.00 Weight (Kilograms): 109.300 Laboratory Laboratory Laboratory Tests 10/14/16 23:14 10/15/16 04:27 10/16/16 04:26 Laboratory Tests 10/14/16 23:14 10/15/16 04:27 10/15/16 14:34 10/16/16 04:26 Assessment & Plan Problems: (1) Anemia Status: Chronic (2) Hypernatremia Status: Acute Assessment & Plan: POA (3) Cholecystitis Status: Acute (4) Murmur, cardiac Status: Chronic (5) Borderline diabetes Status: Chronic (6) Acid reflux Status: Chronic Qualifiers: Esophagitis presence: esophagitis presence not specified Qualified Codes: K21.9 - Gastro-esophageal reflux disease without esophagitis (7) Morbid obesity with BMI of 40.0-44.9, adult Status: Chronic Assessment Impression Anemia-likely secondary to iron deficiency with history of iron deficiency anemia and low MCV. Anemia improved post 1 unit packed red cells yesterday. Acute cholecystitis Mild hypernatremia Cardiac murmur Borderline diabetes-Vargas course currently well controlled Morbid obesity-recent use of phentermine-currently on hold Constipation-start MiraLAX postoperatively Plan Agree with plan for laparoscopic cholecystectomy later today. Continue Zosyn for cholecystitis. Await iron studies-consider oral iron with MiraLAX versus IV iron if iron studies show iron deficiency. Await echocardiogram.. Patient is asymptomatic at this time and no need to delay surgery for echocardiogram. DVT Prophylaxis: SCD'S Code Status Full Code Hospital Course Summary Disclaimer The hospital course summary below is not to be considered part of the above Progress Note. WENDY EL MD Oct 16, 2016 09:44
--- NOTE | 2016-10-16 09:56 | NUR ---
TO PRE-OP per wheelchair with staff. Glasses left in room.
--- NOTE | 2016-10-16 10:19 | ANESPREOP ---
Anesthesia Record Date and Time DATE: 10/16/16 TIME: 10:16 Pre-Op Diagnosis anemia Proposed Surgical Procedure robotic cholecystectomy Allergies: Coded Allergies: No Known Allergies (Unverified , 10/08/16) Ht/Wt/BMI Height: 5 ' 3.00 " Weight: 109.300 kg BMI: 41.8 kg/m2 Vital Signs Date Time Temp Pulse Resp B/P Pulse Ox O2 Delivery O2 Flow Rate FiO2 10/16/16 10:12 98.5 60 13 118/62 100 Room Air Medications Inpatient Medications Current Medications Medications (Trade) Dose Ordered Sig/Valentina Start Time Stop Time Status Last Admin Dose Admin Piperacillin Sod/ Tazobactam Sod 3.375 g/Sodium Chloride 100 ml @ 200 mls/hr Q6HR 10/15/16 03:00 10/16/16 08:56 200 MLS/HR Lactated Ringer's (Lactated Ringers) 1,000 ml @ 100 mls/hr Q10H 10/15/16 00:22 10/16/16 06:40 100 MLS/HR Morphine Sulfate (Morphine) Pain 1-5: 2mg Pain 6-10: 4mg Q2H PRN 10/15/16 00:30 10/16/16 05:35 2 MG Ondansetron HCl 4 mg 4 mg Q6H PRN 10/15/16 00:30 Sodium Chloride (NS) 500 ml @ 0 mls/hr Q0M 10/15/16 09:46 10/15/16 23:59 DC Sodium Chloride (NS) FLUSH BAG FOR ANTIBIOTICS PRN PRN 10/15/16 10:30 10/16/16 08:57 500 ML Pantoprazole Sodium (Protonix Iv) 40 mg DAILY 10/15/16 12:00 10/16/16 08:56 40 MG Ibuprofen (Ibuprofen) 200 Mg Tablet, 800 MG PO Q6H, (Reported) Phentermine HCl (Phentermine HCl) 37.5 Mg Capsule, 37.5 MG PO DAILY, (Reported) Simethicone (Gas-X) 125 Mg Capsule, 125 MG PO PRN, (Reported) Discontinued Medications Hydrocodone/Apap ([place] 5-325 Tablet) 5-325 Tablet, 1-2 TAB PO Q6H PRN for PAIN Ondansetron (Zofran Odt) 4 Mg Tab.rapdis, 4 MG PO Q6HR PRN for NAUSEA &/OR VOMITING Oral disintegrating tablet Currently on Beta Lincoln: No Medical/Surgical History Anesthesia PMH: Reports: *Diabetes ("BORDERLINE"), Obesity, Denies: * Hypertension, *NC, Asthma, Blood Transfusion Reac, CHF, COPD, CVA/Stroke/TIA, Cancer, , Seizures Smoking Status: Current some day smoker (started smoking at age 22; used to smoke up to 1/2 ppd; now only smokes when "stressed") Has pt. smoked today?: No Use Chewing Tobacco?: No Second Hand Exposure: No Substance Use Type: does not use Substance last used: unknown Alcohol Intake: none Last Drink: unknown HX of Last Menstrual Period: 10/10/16 Past Surgical History Orthopedic Surgeries: No Abdominal Surgeries: No Genitourinary Surgeries: No Cardiac Surgeries: No Endocrine Surgeries: No Reproductive Surgeries: Yes - TUBAL LIGATION Neurological Surgeries: No Ear Surgeries: No Nose Surgeries: No Throat Surgeries: No Other Surgeries: No Anesthesia Adverse Reactions: FOUND none Family Hx of Anesthesia Advers: none Hx of Motion Sickness: No Pertinent Findings Laboratory Tests 10/16/16 04:26 Test 10/16/16 08:22 Urine Test Negative (NEGATIVE) EKG Rhythm: Sinus Rhythm Physical Exam Respiratory: Bilat breath sounds equal, Lungs clear Cardiovascular: FOUND Regular rate, rhythm, FOUND No murmur Airway Assessment Mallampati Score: II TMD: 2 Fingerbreadths Neck Extension: Fair Overall Assessment: May Be Diff Mask Vent., May Be Diff Intubation ASA: 2 Plan Anesthesia Plan: GETA Discussion Discussed risks/options/alternatives of anesthesia and questions answered. Patient consents. Nursing pain assessment noted. Attestation Statement Prior to the delivery of any anesthetic medication, I examined the patient, developed the plan, obtained the patient's consent and discussed the risk and benefits of the procedure with the patient/guardian. KORINA NEGRETE CRNA Oct 16, 2016 10:19
[2016-10-16] MEDS ORDERED: GLYCOPYRROLATE 0.4mg/2ml INJECTION ONE (10:25)
[2016-10-16] MEDS ORDERED: ONDANSETRON 4mg/2ml INJECTION ONE (10:25)
[2016-10-16] MEDS ORDERED: ROCURONIUM 50mg/5ml INJECTION IV ONE ×2 (10:25→12:23)
[2016-10-16] MEDS ORDERED: PROPOFOL 200mg 20 ML IV ONE (10:25)
[2016-10-16] MEDS ORDERED: LIDOCAINE 2% (20mg/ml) 5ml PF SDV ONE (10:25)
[2016-10-16] MEDS ORDERED: FENTANYL 250mcg/5ml INJECTION ONE (10:27)
[2016-10-16] MEDS ORDERED: MIDAZOLAM 2mg/2ml INJECTION ONE (10:28)
[2016-10-16] MEDS ORDERED: FENTANYL 100mcg/2ml INJECTION ONE (12:34)
[2016-10-16] MEDS ORDERED: SUGAMMADEX 200 MG/2 ML INJECTION IV ONE (12:48)
--- NOTE | 2016-10-16 12:54 | ECHOF ---
ADDENDUM (D. 10/16/16, T. 10/16/16 BERNARDINO ([id number]) FINAL IMPRESSION Mild mitral regurgitation. MTDJanell
--- NOTE | 2016-10-16 13:27 | GSPOSTPN ---
Procedure Procedure Date: Oct 16, 2016 Surgeon: Zane Assisting Surgeon: Nabor Bernal Anesthesia: Local, GETA ASA: 2 Procedure Robotic assisted laparoscopic cholecystectomy with FireFly imaging. GS Diagnosis Postop Diagnosis Acute cholecystitis cholelithiasis Complications Complications Estimated Blood Loss See Anesthesia Record. Vital Signs See Anesthesia and PACU record. FRANCISCO BERNAL [employer] Oct 16, 2016 13:26
[2016-10-16] MEDS ORDERED: MORPHINE 10mg/ml vl INJECTION IV PRN (13:30)
[2016-10-16] MEDS ORDERED: IBUPROFEN 600 MG TABLET PO PRN (13:30)
[2016-10-16] MEDS: HYDROMORPHONE 2mg/ml INJECTION IV PRN ×3 (13:38→13:48)
--- NOTE | 2016-10-16 13:51 | ECHOF ---
DATE 10/15/2016 INDICATION Palpitations. Heart murmur. TECHNICAL QUALITY Technically good 2-D, M-mode, Doppler echocardiographic images were submitted for interpretation. FINDINGS 1. CARDIAC CHAMBERS. Left atrium is borderline enlarged, measures 4.1 cm. All other cardiac chambers normal in size. Aortic root diameter is normal. RV size upper-normal range with preserved contractility. Left ventricle size of 5.75 cm is also borderline enlarged. 2. LEFT VENTRICLE. Analysis reveals wall thickness is normal. Wall motion analysis is normal. Systolic function is normal, EF of 70%. Diastolic function is normal. 3. VALVES. Aortic, mitral and tricuspid valve structure and motion appear normal with normal valve excursion. 4. DOPPLER. Analysis shows to mild to moderate tricuspid regurgitation with estimated systolic PA pressure of 39 mmHg (per Bernoulli equation). Normal flow velocities throughout were measured. The aortic valve area calculation does not appear to be accurate. Trace pulmonic insufficiency is present. Mild mitral insufficiency is present. No evidence of prolapse. 5. No evidence of pericardial effusion, intracardiac masses or demonstrable shunts. IMPRESSION 1. Borderline enlargement of the left atrium and left ventricle (4.1 cm and 5.75 cm, in order). 2. Normal LV systolic and diastolic function parameters, EF of 70%. 3. Mild to moderate tricuspid regurgitation. 4. Mildly elevated systolic PA pressure with normal central venous pressure. 5. No evidence of pericardial effusion, intracardiac masses or demonstrable shunt. ADDENDUM (D. 10/16/16, T. 10/16/16 ([id number]) FINAL IMPRESSION ADDENDUM: Mild mitral regurgitation. MTDD
--- NOTE | 2016-10-16 14:04 | ANESPO ---
Post-Op Note Date 10/16/16 Time: 14:04 Status Pt Participated in Evaluation: Pt participated in person Vital Signs Date Time Temp Pulse Resp B/P Pulse Ox O2 Delivery O2 Flow Rate FiO2 10/16/16 13:48 15 10/16/16 13:29 98.0 97 136/60 96 Room Air Respiratory Function: Airway patent, Regular respirations Cardiovascular Function: Regular pulse Mental Status: Alert/oriented Pain Level Intensity: 4 Unable to Assess Pain Due To: Pt Sleeping Hydration: Taking po fluids, IV infusing Complications during Recovery None apparent Follow-Up Instructions Instructions Per Surgeon DENZEL SKAGGS CRNA Oct 16, 2016 14:04
--- NOTE | 2016-10-16 14:18 | NUR ---
RETURNS TO ROOM from post-op per cart. Transfers herself to the bed. VS are stable. On room air. Four incisions in place, three sealed with Dermabond, one has JEROME drain with sutures.
--- NOTE | 2016-10-16 16:52 | OPNOTEF ---
DATE OF SERVICE 10/16/2016 SURGEON Juan Degroot MD FACE MAN Nabor Bernal APRN PREOPERATIVE DIAGNOSIS Acute/chronic cholecystitis. POSTOPERATIVE DIAGNOSIS Acute/chronic cholecystitis. Hydrops of gallbladder. PROCEDURE Robotic-assisted laparoscopic cholecystectomy with use of Firefly biliary imaging. ANESTHESIA General endotracheal. EBL/FLUIDS Please see chart. BRIEF HISTORY/INDICATIONS Ms. Ray is a 40-year-old female whom I was asked to see yesterday as a result of her one-week history of significant abdominal pain. She did have a CT scan that revealed evidence for acute cholecystitis with thickening of the gallbladder wall, pericholecystic fluid, and some sludge/stones noted within her gallbladder. As a result of the above indications it was recommended to the patient she undergo surgical intervention. For completeness please refer to notes included in the patient's chart. FINDINGS Upon laparoscopy the gallbladder was found be quite distended in nature. Gallbladder wall had a thick rind surrounding it and it did contain a considerable amount of pericholecystic fluid and inflammatory changes. Liver edge was smooth without nodularities. Peritoneal surfaces, omentum, small bowel which was visualized were within normal limits. A cholecystectomy was able to be completed without incident. DESCRIPTION OF PROCEDURE After informed consent was obtained the patient was brought to the operative suite and placed on the table in supine fashion. The abdomen was prepped and draped in sterile fashion. Formal timeout was then completed. 0.25% Marcaine with epinephrine was injected just beneath the level of the umbilicus. A 2-3 cm curved incision was then made through the area of analgesia. Dissection was carried down to the deep subcuticular tissues to the underlying fascia. Fascia was then grasped with two Meg clamps and retracted anteriorly. A 1-cm incision was then made between the two Meg clamps. Hemostat was then introduced into the fascial incision and gently spread. U-stitch was placed with 0-Vicryl. A 12-mm Jonathan port was then placed in the peritoneal cavity and pneumoperitoneum was established to a patient pressure of 15 mmHg utilizing carbon dioxide. Next, two 8-mm da Rodney ports were placed in the left upper quadrant and right lower quadrant under direct visualization. An additional 5-mm assist port was placed along the right lateral abdominal wall. Each port site was preinjected with 0.25% Marcaine and placed under direct visualization. The abdominal cavity was explored via the laparoscope. Findings were as noted above. The gallbladder was found to be quite thickened and distended in nature. There was some omentum adherent to the gallbladder. Fortunately, the omentum was able to be bluntly dissected away from the gallbladder. The gallbladder was distended enough that my delivery assistant was unable to grab the fundal portion of the gallbladder. A decompressive needle was placed within the gallbladder and the gallbladder was partially suctioned. White mucus-like material was suctioned from the gallbladder indicative of hydrops of the gallbladder. Now my delivery assistant could then grasp the fundal portion of the gallbladder and retract it in a cephalad fashion. Dissection was begun high upon the infundibulum of the gallbladder with the use of electrocautery. The patient was found to have a quite thickened rind surrounding the gallbladder. Medial and lateral aspects of the infundibulum of the gallbladder were freed from the underlying liver bed fossa. One could see a thick rind upon the mid portion of the infundibulum of the gallbladder. This area was able to be dissect out circumferentially and it was felt that perhaps there was a cystic artery present within the mid portion of this thick rind. This site of dissection was again performed upon the mid portion of the infundibulum of the gallbladder. Two Hem-o-jazlyn clips were placed upon this portion of the thickened rind of the gallbladder upon the mid portion of the infundibulum of the gallbladder. The tissue between the two Hem-o-jazlyn clips was then divided. This did result in further visualization of the medial aspect of the gallbladder. Dissection was then continued along the medial portion of the infundibulum of the gallbladder. During the process of dissection a fenestrated bipolar grasper was utilized to grasp the infundibulum of the gallbladder and retract it in a lateral and slightly caudad fashion to provide exposure to the triangle of Calot. With further dissection more upon the posterior aspect of the infundibulum of the gallbladder, one could then see some additional vessels entering directly into the gallbladder. This was away from the vicinity of the hepatoduodenal ligament and again was upon the infundibulum of the gallbladder. These vessels were dissected out upon the posterior aspect of the infundibulum of the gallbladder. Two additional Hem-o-jazlyn clips were placed upon these structures adjacent to the infundibulum of the gallbladder and the vessels between the two Hem-o-jazlyn clips were then further divided. This did result in further immobilization of the posterior aspect of the infundibulum of the gallbladder. Firefly biliary imaging was performed during the process of dissection. Unfortunately, the gallbladder did not "light up" nor the cystic duct as a result of the hydrops of the gallbladder. Dissection was carried out carefully and meticulously upon the infundibulum of the gallbladder until the entire infundibular portion of the gallbladder had been dissected out circumferentially. The infundibulum was continued to be dissected more medially towards the cystic duct origin. The beginning of the cystic duct origin was identified and at this area there was a fair amount of inflammatory tissue present surrounding the cystic duct. I did feel comfortable, however, at this point in time with the biliary anatomy and the fact that the infundibulum had been dissected out circumferentially. At this juncture in time a Hem-o-jazlyn clip was placed upon the cystic duct just beyond the infundibulum of the gallbladder. An additional Hem-o-jazlyn clip was then actually placed upon the distal aspect of the infundibulum of the gallbladder. The cystic duct/infundibular portion of the gallbladder was divided between the two Hem-o-jazlyn clips utilizing scissors. The gallbladder was then dissected off the liver bed fossa. This itself was somewhat difficult given the marked inflammatory changes. A small portion of the posterior aspect of the gallbladder was left intact upon the gallbladder wall during the process of dissection. The mucosa involving this small portion of gallbladder wall was obliterated with the use of electrocautery. Eventually the gallbladder was able to be completely dissected off the liver bed fossa and placed within a laparoscopic retrieval bag and removed via the infraumbilical port site. All irrigant was suctioned until clear. The gallbladder fossa was hemostatic in nature. The previously placed Hem-o-jazlyn clips were visualized and remained to be intact. Next, given the marked inflammatory changes that were present, I elected to go ahead and place a 19-Fr drain. The 19-Fr drain was placed through the da Rodney port within the left upper quadrant and brought out through the delivery assistant portal along the right lateral abdominal wall. The drain was placed in a subhepatic location and secured to this location. The remaining ports were removed under direct visualization. The previously placed U-stitch was then secured, imbricating the fascia. Once the robot had been undocked, the pneumoperitoneum was released. It should be noted that after placement of the ports at the beginning of the procedure the robot was docked overlying the patient's right shoulder at a 45-degree angle. The patient was placed in reverse Trendelenburg position and rotated slightly towards her left. After closure of this fascia at the infraumbilical port site I did place a finger within the incision and one could still feel a component of an additional fascial defect. This additional smaller fascial defect was also closed in a [id number]-tukhy fashion with 0-Vicryl. All skin incisions were closed in a subcuticular fashion with 4-0 Monocryl. Dermabond was applied overlying the incisions. Patient is in the process of awakening from her anesthetic and will be sent back to the recovery room once deemed in stable condition. Additionally, it should be noted that Nabor Beranl APRN, was present throughout the entire case and played a pivotal role in providing assistance and exposure during the course of the procedure. LUCÍA
--- NOTE | 2016-10-16 17:53 | NUR ---
HEADACHE Patient complains of headache. Motrin 600mg PO is given. Will monitor.
[2016-10-16] MEDS ORDERED: ACETAMINOPHEN 325 MG TABLET PO PRN (18:30)
--- NOTE | 2016-10-16 18:31 | NUR ---
STATUS Patient has slept most of the afternoon, but has been up to the bathroom x 2. Ambulates with standby assist. VS have been stable. Incisions and JEROME drain are intact. Family is currently at bedside.
[2016-10-16] MEDS ORDERED: METOCLOPRAMIDE 10mg/2ml INJECTION IV PRN (19:45)
[2016-10-16] MEDS ORDERED: DiphenhydrAMINE 50 MG/ML INJECTION IV ONE (19:45)
--- NOTE | 2016-10-16 19:45 | NUR ---
N/V Pt c/o nausea, had a small amt of clear emesis. States she cant take Zofran as it gives her severe headaches and she would like it listed as an allergy. New orders rec'd. IV Benadryl given and pt is resting at this time.
[2016-10-17] VITALS (15 sets, daily range): BP systolic 123–143; BP diastolic 66–82; PULSE 54–75; RESP 14–18; TEMP 98.7–98.8; O2SAT 90–96
[2016-10-17] MEDS: MORPHINE SULFATE 4 MG SYRINGE IV PRN ×2 (02:05→05:23)
--- NOTE | 2016-10-17 02:18 | NUR ---
Pain Pt c/o pain to abd 03/03, morphine given as she is afraid the po meds will make her sick. Emptied 30cc from JEROME drain, incisions CDI. Will monitor.
[2016-10-17] MEDS: LR 1,000 ML IV SCH ×2 (02:22→06:54)
[2016-10-17] MEDS: PIPERACILLIN/TAZOBACTAM 3.375 G in NORMAL SALINE 100 ML IV SCH ×2 (03:07→09:21)
[2016-10-17 04:23] LABS: FERRITIN 14.4 NG/ML (6-137)
[2016-10-17 04:53] LABS: FOLATE 9.5 NG/ML (2.76-20)
--- NOTE | 2016-10-17 05:35 | NUR ---
Summary Pt is much more sore today, incisions CDI, JEROME drain intact with sutures. Up to BR with one person assist. Encouraged PO intake but she took very little. Morphine given for pain x3, declines PO pain meds, states she'll see if she can eat breakfast and take PO meds then. VSS, alert and able to make needs known.
--- NOTE | 2016-10-17 08:30 | PNSURG ---
Subjective DATE: 10/17/16 TIME: 08:07 Interval History She states the pre-op pain that brought her to the hospital is gone, but replaced with incisional pain. Appetite is poor, she had some nausea during the evening yesterday. She plans on trying some regular bland breakfast. Noodle soup last evening caused nausea. She is voiding without difficulty and ambulating in the halls. She is thinking she will be ok to go home later today. Objective Vital Signs Date Time Temp Pulse Resp B/P Pulse Ox O2 Delivery O2 Flow Rate FiO2 10/17/16 06:34 16 10/17/16 03:42 98.7 71 142/78 90 Room Air Height (Feet): 5 Height (Inches): 3.00 Weight (Kilograms): 109.300 BMI 41.8 General Appearance: Alert, Awake, Orientated x 3 Respiratory: FOUND: clear bilaterally Cardiac: FOUND: murmur, regular rate Abdominal Brief: FOUND: appropriately tender, soft Incision: FOUND: Clean, Dry, Intact, open to air (Dermabond in tact), other ( early ecchymosis at umbilicus), NOT FOUND: erythema Drains Present: FOUND Joe French Drain Output: FOUND: serosanguinous Laboratory Laboratory Tests 10/14/16 23:14 10/15/16 04:27 10/16/16 04:26 Laboratory Tests 10/14/16 23:14 10/15/16 04:27 10/15/16 14:34 10/16/16 04:26 Procedure Procedure Date: Oct 16, 2016 Surgeon: Zane Correa Robotic assisted laparoscopic cholecystectomy with [employer] imaging. GS Assessment & Plan Problems: (1) Cholecystitis, acute with cholelithiasis Status: Resolved Qualifiers: Biliary obstruction: without biliary obstruction Assessment Doing well post op considering how inflamed and necrotic the GB was. Will continue to advance diet as tolerated. Continue IV ABX while in hospital and change to PO Augmentin for discharge, hopefully later today. Hospitalist planning on iron infusion before discharge, and follow up with PCP in Dr. Gar's office for ongoing outpatient management. DVT Prophylaxis: SCD'S GI Prophylaxis: Protonix Code Status Full Code Hospital Course Summary Disclaimer The visit summary below is not to be considered part of the above Progress Note. Hospital Course Summary 10-15-2016 40-year-old female with cholecystitis and finding of marked anemia upon laboratory evaluation. PLAN Last evening when I was notified by the emergency room physician I had requested that she be placed in the hospital on an outpatient basis. I had recommended that she receive antibiotics. Zosyn was begun. Today with her anemia I have consulted the medical/hospitalist system for further evaluation of her anemia. I do believe the patient should undergo transfusion prior to surgery. It was my recommendation, given her findings of acute cholecystitis, that we proceed with surgical intervention/cholecystectomy. I did discuss in detail with the patient and her friend who was present earlier this morning what a laparoscopic, possible robotic-assisted, cholecystectomy would entail and its associated risks which included but were not inclusive of bleeding, infection, potential conversion to an open procedure, potential injury to adjacent structures, especially the common bile duct. The patient understood and agreed with this plan. I informed the patient that unfortunately I have a very long operative day already scheduled today. Her case is not emergent in nature. I informed the patient that if possible we would proceed later this evening with surgical intervention. If, on the other hand, I do not complete my scheduled cases until late this evening as a result of the add-on emergencies, that we would wait until tomorrow morning before proceeding with surgical intervention. Patient understood and agreed. Item Value Date Time Hemoglobin 8.4 GM/DL L 10/16/16 0426 Hemoglobin 8.1 GM/DL L 10/15/16 1434 Hemoglobin 7.5 GM/DL L # 10/15/16 0427 Hemoglobin 8.9 GM/DL L 10/14/16 2314 HGB 7.5 = 1 unitr PRBC transfused on 10-15 Recommendation Microcytic anemia - iron studies ordered. Agree with transfusion, as ordered by primary team. Does not tolerate FeSO4 d/t severe constipation. Cardiac murmur, palpitations, hx of phentermine use - check EKG and echocardiogram Hypernatremia - Agree with IVF. Acute cholecystitis - per attending. Cholecystectomy planned (though timing hasn 't been secured yet). Borderline diabetes - monitor glucose. Check A1c. Constipation - recommend routine bowel regimen. 10-15 Hospitalist consult for anemia. 10-16 Robotic assisted lap valente with [employer] imaging, see operative report for details. 10-17 Doing well post op considering how inflamed and necrotic the GB was. Will continue to advance diet as tolerated. Continue IV ABX while in hospital and change to PO Augmentin for discharge, hopefully later today. Hospitalist planning on iron infusion to treat iron def anemia, before discharge , and follow up with PCP in Dr. Gar's office for ongoing outpatient management. FRANCISCO BRINK APRN Oct 17, 2016 08:13
[2016-10-17 08:48] LABS: BASOPHILS % (AUTO) 0.1 % (0-2); EOSINOPHILS % (AUTO) 0.3 % (0-4); IMMATURE GRANULOCYTE # (AUTO) 0.01 T/MM3 (0.00-0.03); IMMATURE GRANULOCYTE % (AUTO) 0.1 % (0.0-0.5); LYMPHOCYTES # (AUTO) 1.2 T/MM3 (1-4.8); LYMPHOCYTES % (AUTO) 16.3 % (23-45); MEAN CORPUSCULAR HGB 21.6 UUG (26-34); MEAN CORPUSCULAR VOLUME 72.1 UM3 (80-100); MEAN PLATELET VOLUME 10.6 UM3 (9.4-12.4); MONOCYTES # (AUTO) 0.3 T/MM3 (0-0.8); MONOCYTES % (AUTO) 4.5 % (0-9.0); NEUTROPHILS #(AUTO)-ABSOLUTE 5.7 T/MM3 (1.8-7.7); NEUTROPHILS % (AUTO) 78.7 % (33-66); RED BLOOD COUNT 4.16 M/MM3 (4.00-5.20); WBC - WHITE BLOOD COUNT 7.3 T/MM3 (4.5-11.0)
[2016-10-17 08:59] LABS: ALBUMIN 3.2 G/DL (3.5-5.0); ALKALINE PHOSPHATASE 68 U/L (38-126); ALT (SGPT) 24 U/L (9-52); ANION GAP 11 MEQ/L (5-15); AST (SGOT) 15 U/L (14-36); BUN/CREATININE RATIO 8 RATIO (6-26); CALCIUM 8.7 MG/DL (8.4-10.2); CHLORIDE 104 MEQ/L (98-107); CO2 - CARBON DIOXIDE 29 MEQ/L (22-30); CREATININE 0.8 MG/DL (0.7-1.2); GLOMERULAR FILTRATION RATE 80; GLUCOSE 109 MG/DL (65-110); POTASSIUM 3.6 MEQ/L (3.6-5); SODIUM 144 MEQ/L (134-144); TOTAL PROTEIN 6.3 G/DL (6.3-8.2)
[2016-10-17] MEDS: HYDROCODONE/APAP 5 mg/325 mg TABLET PO PRN ×2 (09:21→15:07)
[2016-10-17] MEDS: PANTOPRAZOLE 40mg INJECTION IV SCH (09:21)
[2016-10-17] MEDS ORDERED: IRON DEXTRAN 100mg/2ml INJECTION IV ONE (09:30)
[2016-10-17] MEDS ORDERED: NORMAL SALINE IV SCH (10:30)
[2016-10-17] MEDS ORDERED: IRON DEXTRAN IV SCH (10:30)
--- NOTE | 2016-10-17 11:18 | NUR ---
JAYDE CM IN TO VISIT WITH PT. SHE IS ALERT AND ORIENTED. SHE PLANS TO DC HOME. SHE DENIES DC NEEDS. HER LACE SCORE IS 9. Addendum: 10/17/16 at 1119 by TASHI GONSALES RN Amended: Links added.
[2016-10-17] MEDS ORDERED: HYDR-4246 PO (15:08)
[2016-10-17] MEDS ORDERED: AMOX-351 PO (15:08)
--- NOTE | 2016-10-17 15:10 | NUR ---
ASSUMED PT CARE AT THIS TIME. PT RESTING IN BED, CALL LIGHT WITHIN REACH. 1 NORCO GIVEN FOR PAIN RATED A 4/10.
--- NOTE | 2016-10-17 15:16 | GSDISC ---
General Date Date DATE: 10/17/16 TIME: 15:10 Attending Physician Juan Corona MD,Facs,Cws Admitting Physician Juan Corona MD,Facs,Cws Consulting Physician Jesus Hagan MD Discharge Diagnosis: (1) Iron deficiency anemia Status: Acute (2) Cholecystitis, acute with cholelithiasis Status: Resolved (3) Morbid obesity with BMI of 40.0-44.9, adult Status: Chronic (4) Murmur, cardiac Status: Chronic Procedures Robotic assisted laparoscopic cholecystectomy with [employer] imaging. Laboratory Laboratory Item Value Date Time Reticulocyte Hgb Content (CHr) 18.0 PG L 10/15/16426 Immature Reticulocyte Fraction 12.3 % 10/15/16426 Percent Reticulocyte Count 0.8 % 10/15/16426 Absolute Reticulocyte Count 0.0344 T/MM3 10/15/16426 Absolute Basophils (auto) 0.0 T/MM3 10/17/16832 Absolute Eosinophils (auto) 0.0 T/MM3 10/17/16832 Absolute Monocytes (auto) 0.3 T/MM3 10/17/16832 Absolute Lymphocytes (auto) 1.2 T/MM3 10/17/16832 Absolute Neutrophils (auto) 5.7 T/MM3 10/17/16832 Absolute Immature Granulocyte (auto 0.01 T/MM3 10/17/16832 Basophils (%) (Auto) 0.1 % 10/17/16832 Eosinophils (%) (Auto) 0.3 % 10/17/16832 Monocytes (%) (Auto) 4.5 % 10/17/16832 Lymphocytes (%) (Auto) 16.3 % L 10/17/16832 Neutrophils (%) (Auto) 78.7 % H 10/17/16832 Immature Granulocyte % (Auto) 0.1 % 10/17/16832 Mean Platelet Volume 10.6 UM3 10/17/16832 Platelet Count 255 T/MM3 10/17/16832 RDW Standard Deviation 43.9 FL 10/17/16832 Mean Corpuscular Hemoglobin Concent 30.0 GM/DL L 10/17/16832 Mean Corpuscular Hemoglobin 21.6 UUG L 10/17/16832 Mean Corpuscular Volume 72.1 UM3 L 10/17/16 0833 Hematocrit 30.0 % L 10/17/16 0833 Hemoglobin 9.0 GM/DL L 10/17/16 0833 Red Blood Count 4.16 M/MM3 10/17/16 0833 White Blood Count 7.3 T/MM3 10/17/1633 White Blood Count 6.5 T/MM3 10/15/167 Red Blood Count 3.56 M/MM3 L 10/15/16 0427 Hemoglobin 7.5 GM/DL L # 10/15/16 0427 Hematocrit 25.1 % L # 10/15/16426 Mean Corpuscular Volume 70.5 UM3 L 10/15/16426 Mean Corpuscular Hemoglobin 21.1 UUG L 10/15/16426 Mean Corpuscular Hemoglobin Concent 29.9 GM/DL L 10/15/16426 RDW Standard Deviation 41.0 FL 10/15/16426 Platelet Count 241 T/MM3 10/15/16426 Mean Platelet Volume 11.2 UM3 10/15/16426 Vitamin B12 Level 325 PG/ML 10/15/16426 Folate 9.5 NG/ML 10/15/167 Lipase 31 U/L 10/14/16 2314 Trend Hemoglobin Test 10/14/16 23:14 10/15/16 04:27 10/15/16 14:34 10/16/16 04:26 Hemoglobin 8.9GM/DL (12-16) 7.5GM/DL (12-16) 8.1GM/DL (12-16) 8.4GM/DL (-16) Test 10/17/16 08:33 Hemoglobin 9.0GM/DL (12-16) Laboratory Tests Test 10/16/16 16:07 10/16/16 22:45 10/17/16 05:59 10/17/16 08:33 Glucometer 109mg/dL 98mg/dL 102mg/dL White Blood Count 7.3T/MM3 Red Blood Count 4.16M/MM3 Hemoglobin 9.0GM/DL Hematocrit 30.0% Mean Corpuscular Volume 72.1UM3 Mean Corpuscular Hemoglobin 21.6UUG Mean Corpuscular Hemoglobin Concent 30.0GM/DL RDW Standard Deviation 43.9FL Platelet Count 255T/MM3 Mean Platelet Volume 10.6UM3 Immature Granulocyte % (Auto) 0.1% Neutrophils (%) (Auto) 78.7% Lymphocytes (%) (Auto) 16.3% Monocytes (%) (Auto) 4.5% Eosinophils (%) (Auto) 0.3% Basophils (%) (Auto) 0.1% Absolute Immature Granulocyte (auto 0.01T/MM3 Absolute Neutrophils (auto) 5.7T/MM3 Absolute Lymphocytes (auto) 1.2T/MM3 Absolute Monocytes (auto) 0.3T/MM3 Absolute Eosinophils (auto) 0.0T/MM3 Absolute Basophils (auto) 0.0T/MM3 Turbidity < 20 Sodium Level 144MEQ/L Potassium Level 3.6MEQ/L Chloride Level 104MEQ/L Carbon Dioxide Level 29MEQ/L Anion Gap 11MEQ/L Blood Urea Nitrogen 6.0MG/DL Creatinine 0.8MG/DL Glomerular Filtration Rate Calc 80 BUN/Creatinine Ratio 8RATIO Glucose Level 109MG/DL Calculated Osmolality 276MOSM/KG Calcium Level 8.7MG/DL Total Bilirubin 0.60MG/DL Icterus Index < 2 Aspartate Amino Transf (AST/SGOT) 15U/L Alanine Aminotransferase (ALT/SGPT) 24U/L Alkaline Phosphatase 68U/L Total Protein 6.3G/DL Albumin 3.2G/DL Globulin 3.1G/DL Albumin/Globulin Ratio 1.0RATIO Chemistry Specimen Hemolysis < 15 Pathology Pathology Pending at time of discharge Radiology CT abd/pelvis Findings: The included portions of the lung bases are clear. Heart size normal. No pleural effusion. Liver is fairly homogeneous. The spleen is mildly enlarged. The gallbladder is distended with some pericholecystic fluid and gallbladder wall thickening as well as some dependent sludge or noncalcified gallstones. The CBD is not definitely enlarged. The pancreas is normal in contour. Adrenal glands are normal. Kidneys enhance homogeneously and symmetrically without perinephric collection or hydronephrosis. The abdominal aorta is nonaneurysmal without significant calcific atherosclerotic disease. No retroperitoneal or mesenteric adenopathy. Pelvis: The uterus is tilted slightly to the right. No free fluid. No pelvic sidewall adenopathy. No significant distal colonic diverticulosis or evidence of diverticulitis. A normal appendix is identified. No definite bony destructive process. Impression: Suspect acute versus chronic cholecystitis. Hospital Course 10-15-2016 40-year-old female with cholecystitis and finding of marked anemia upon laboratory evaluation. PLAN Last evening when I was notified by the emergency room physician I had requested that she be placed in the hospital on an outpatient basis. I had recommended that she receive antibiotics. Zosyn was begun. Today with her anemia I have consulted the medical/hospitalist system for further evaluation of her anemia. I do believe the patient should undergo transfusion prior to surgery. It was my recommendation, given her findings of acute cholecystitis, that we proceed with surgical intervention/cholecystectomy. I did discuss in detail with the patient and her friend who was present earlier this morning what a laparoscopic, possible robotic-assisted, cholecystectomy would entail and its associated risks which included but were not inclusive of bleeding, infection, potential conversion to an open procedure, potential injury to adjacent structures, especially the common bile duct. The patient understood and agreed with this plan. I informed the patient that unfortunately I have a very long operative day already scheduled today. Her case is not emergent in nature. I informed the patient that if possible we would proceed later this evening with surgical intervention. If, on the other hand, I do not complete my scheduled cases until late this evening as a result of the add-on emergencies, that we would wait until tomorrow morning before proceeding with surgical intervention. Patient understood and agreed. Item Value Date Time Hemoglobin 8.4 GM/DL L 10/16/16 0426 Hemoglobin 8.1 GM/DL L 10/15/16 1434 Hemoglobin 7.5 GM/DL L # 10/15/16 0427 Hemoglobin 8.9 GM/DL L 10/14/16 2314 HGB 7.5 = 1 unitr PRBC transfused on 10-15 Recommendation Microcytic anemia - iron studies ordered. Agree with transfusion, as ordered by primary team. Does not tolerate FeSO4 d/t severe constipation. Cardiac murmur, palpitations, hx of phentermine use - check EKG and echocardiogram Hypernatremia - Agree with IVF. Acute cholecystitis - per attending. Cholecystectomy planned (though timing hasn 't been secured yet). Borderline diabetes - monitor glucose. Check A1c. Constipation - recommend routine bowel regimen. 10-15 Hospitalist consult for anemia. 10-16 Robotic assisted lap valente with [employer] imaging, see operative report for details. 10-17 Doing well post op considering how inflamed and necrotic the GB was. Did well with breakfast and lunch. Continue IV ABX while in hospital and change to PO Augmentin for discharge. Iron infusion before discharge. Appointment with Marty Watson for October 24 to follow up on anemia. Appointment with Zane October 19 for drain management. Home Meds Active Scripts Amoxicillin/Potassium Clav (Augmentin 875-125 Tablet) 1 Each Tablet, 1 TAB PO Q12H for 7 Days, #14 TAB TAKE WITH MEALS Prov:FRANCISCO BRINK APRN 10/17/16 Hydrocodone/Acetaminophen ([place] 5-325 Tablet) 5-325 Tablet, 1-2 TAB PO Q5H Y for PAIN, #30 TAB Prov:FRANCISCO BRINK APRN 10/17/16 Reported Medications Simethicone (Gas-X) 125 Mg Capsule, 125 MG PO PRN 10/08/16 Ibuprofen (Ibuprofen) 200 Mg Tablet, 800 MG PO Q6H, TAB 10/08/16 Phentermine HCl (Phentermine HCl) 37.5 Mg Capsule, 37.5 MG PO DAILY 10/08/16 Discontinued Scripts Hydrocodone/Apap ([place] 5-325 Tablet) 5-325 Tablet, 1-2 TAB PO Q6H Y for PAIN, # 10 TAB Prov:SAJAN BELL MD 10/08/16 Ondansetron (Zofran Odt) 4 Mg Tab.rapdis, 4 MG PO Q6HR Y for NAUSEA &/OR VOMITING, #10 TAB Oral disintegrating tablet Prov:SAJAN BELL MD 10/08/16 Discharge Disposition good FRANCISCO BRINK APRN Oct 17, 2016 15:13
--- NOTE | 2016-10-17 16:53 | NUR ---
DISMISSAL PT DISMISSED TO HOME VIA AMBULATION TO VEHICLE AT 1654. GO HOME INSTRUCTIONS GIVEN AND INSTRUCTED ON, IVL PULLED, SCRIPTS GIVEN, PT DRESSED. J/P DRAIN EDUCATED ON AND MEASURING CUP GIVEN.
--- NOTE | 2016-10-17 18:01 | PNPDOC ---
Subjective Date DATE: 10/17/16 TIME: 17:55 Subjective The patient was seen earlier this morning. She states she is feeling better. Has some incisional abdominal pain. She's been up walking to the bathroom. She denies any chest pain, shortness of breath or chest tightness. She denies any lightheadedness. She states she's been urinating okay. As of this morning, she had not had any flatus. Objective Vital Signs Vital signs Vital Signs Date Time Temp Pulse Resp B/P Pulse Ox O2 Delivery O2 Flow Rate FiO2 10/17/16 16:00 63 16 143/82 96 Room Air 10/17/16 09:04 98.8 GEN-alert, oriented, no acute distress CV-regular rate and rhythm CHEST-clear to auscultation bilaterally ABD-soft, mildly tender, hypoactive bowel sounds -no Pak EXT-no edema NEURO-no focal deficits SKIN-warm and dry and without rashes Height (Feet): 5 Height (Inches): 3.00 Weight (Kilograms): 110.100 Laboratory Laboratory Item Value Date Time Iron Level 16 UG/DL L 10/15/16426 Total Iron Binding Capacity 424 UG/DL 10/15/16426 Ferritin 14.4 NG/ML 10/15/16426 Hemoglobin A1c 5.4 % L 10/15/167 Laboratory Tests 10/16/16 04:26 10/17/16 08:33 Laboratory Tests 10/16/16 04:26 10/17/16 08:33 Assessment & Plan Problems: (1) Anemia Status: Chronic (2) Hypernatremia Status: Acute Assessment & Plan: POA (3) Cholecystitis Status: Acute (4) Murmur, cardiac Status: Chronic (5) Borderline diabetes Status: Chronic (6) Acid reflux Status: Chronic Qualifiers: Esophagitis presence: esophagitis presence not specified Qualified Codes: K21.9 - Gastro-esophageal reflux disease without esophagitis (7) Morbid obesity with BMI of 40.0-44.9, adult Status: Chronic Assessment 10/17/2016 Impression Anemia-secondary to iron deficiency with history of iron deficiency anemia and low MCV. Anemia improved post 1 unit packed red cells on 10/15/2016. Will give IV iron today. Acute cholecystitis-patient underwent laparoscopic cholecystectomy yesterday and did well. Mild hypernatremia-resolved Cardiac murmur Borderline diabetes- Morbid obesity-recent use of phentermine-currently on hold Constipation-start MiraLAX postoperatively Echocardiogram showed borderline enlargement of the left atrium and left ventricle. Normal LV systolic and diastolic function with EF of 70%. Mild to moderate tricuspid regurg. Mildly elevated systolic PA pressure with normal central venous pressure. Mild mitral regurg. Plan Antibiotics for acute cholecystitis per surgery Re: iron deficiency anemia-IV iron ordered for today We'll have echocardiogram results sent to the patient's primary care provider DVT Prophylaxis: SCD'S Code Status Full Code Hospital Course Summary Disclaimer The hospital course summary below is not to be considered part of the above Progress Note. Hospital Course Summary 10-15-2016 40-year-old female with cholecystitis and finding of marked anemia upon laboratory evaluation. PLAN Last evening when I was notified by the emergency room physician I had requested that she be placed in the hospital on an outpatient basis. I had recommended that she receive antibiotics. Zosyn was begun. Today with her anemia I have consulted the medical/hospitalist system for further evaluation of her anemia. I do believe the patient should undergo transfusion prior to surgery. It was my recommendation, given her findings of acute cholecystitis, that we proceed with surgical intervention/cholecystectomy. I did discuss in detail with the patient and her friend who was present earlier this morning what a laparoscopic, possible robotic-assisted, cholecystectomy would entail and its associated risks which included but were not inclusive of bleeding, infection, potential conversion to an open procedure, potential injury to adjacent structures, especially the common bile duct. The patient understood and agreed with this plan. I informed the patient that unfortunately I have a very long operative day already scheduled today. Her case is not emergent in nature. I informed the patient that if possible we would proceed later this evening with surgical intervention. If, on the other hand, I do not complete my scheduled cases until late this evening as a result of the add-on emergencies, that we would wait until tomorrow morning before proceeding with surgical intervention. Patient understood and agreed. Item Value Date Time Hemoglobin 8.4 GM/DL L 10/16/16 0426 Hemoglobin 8.1 GM/DL L 10/15/16 1434 Hemoglobin 7.5 GM/DL L # 10/15/16 0427 Hemoglobin 8.9 GM/DL L 10/14/16 2314 HGB 7.5 = 1 unitr PRBC transfused on 10-15 Recommendation Microcytic anemia - iron studies ordered. Agree with transfusion, as ordered by primary team. Does not tolerate FeSO4 d/t severe constipation. Cardiac murmur, palpitations, hx of phentermine use - check EKG and echocardiogram Hypernatremia - Agree with IVF. Acute cholecystitis - per attending. Cholecystectomy planned (though timing hasn 't been secured yet). Borderline diabetes - monitor glucose. Check A1c. Constipation - recommend routine bowel regimen. 10-15 Hospitalist consult for anemia. 10-16 Robotic assisted lap valente with [employer] imaging, see operative report for details. 10-17 Doing well post op considering how inflamed and necrotic the GB was. Did well with breakfast and lunch. Continue IV ABX while in hospital and change to PO Augmentin for discharge. Iron infusion before discharge. Appointment with Marty Watson for October 24 to follow up on anemia. Appointment with Zane October 19 for drain management. Impression Anemia-likely secondary to iron deficiency with history of iron deficiency anemia and low MCV. Anemia improved post 1 unit packed red cells yesterday. Acute cholecystitis Mild hypernatremia Cardiac murmur Borderline diabetes-Vargas course currently well controlled Morbid obesity-recent use of phentermine-currently on hold Constipation-start MiraLAX postoperatively Plan Agree with plan for laparoscopic cholecystectomy later today. Continue Zosyn for cholecystitis. Await iron studies-consider oral iron with MiraLAX versus IV iron if iron studies show iron deficiency. Await echocardiogram.. Patient is asymptomatic at this time and no need to delay surgery for echocardiogram. WENDY EL MD Oct 17, 2016 18:00
--- NOTE | 2016-10-23 11:30 | NUR ---
ATTEMPTED [facility] FOLLOW UP PHONE CALL #1, NO ANSWER, LEFT VOICE MESSAGE TO RETURN CALL TO CM.
--- NOTE | 2016-10-25 10:18 | NUR ---
ATTEMPTED POST HOSP[facility] FOLLOW UP PHONE CALL #2, NO ANSWER, LEFT VOICE MESSAGE TO RETURN CALL TO CM.
== END 2016-10-17 16:54 | disposition home or self-care (01) | DRG 418 ==
LOC: ED 22:02 → EDHOLD 10-15 00:27 → SRG 10-15 01:15
PROVIDERS: ADMIT Surgery; ATTEND Surgery
PROC: 30233N1 Transfusion of Nonautologous Red Blood Cells into Peripheral Vein, Percutaneous Approach (ICD-10-PCS; principal; 2016-10-15)
PROC: 0FT44ZZ Resection of Gallbladder, Percutaneous Endoscopic Approach (ICD-10-PCS; 2016-10-16)
PROC: 8E0W4CZ Robotic Assisted Procedure of Trunk Region, Percutaneous Endoscopic Approach (ICD-10-PCS; 2016-10-16)
DX: K80.00 Calculus of gallbladder with acute cholecystitis without obstruction (principal); E87.0 Hyperosmolality and hypernatremia; Z68.41 Body mass index [BMI] 40.0-44.9, adult; E66.01 Morbid (severe) obesity due to excess calories; F17.210 Nicotine dependence, cigarettes, uncomplicated; K59.00 Constipation, unspecified; R73.03 Prediabetes; K21.9 Gastro-esophageal reflux disease without esophagitis; R01.1 Cardiac murmur, unspecified; D50.9 Iron deficiency anemia, unspecified; Z79.899 Other long term (current) drug therapy
CPT/HCPCS: 36430; 47562; S2900; 36000; 36415; 80048; 80053; 81003; 81025; 82607; 82728; 82746; 82948; 83036; 83540; 83550; 83690; 84443; 85018; 85025; 85045; 86850; 86900; 86901; 86922; 93005; 93306; 96361; 96374; 96375; 99406

== ENCOUNTER 2016-11-03 16:51 | Emergency (ER) | payer BC ==
[~2016-11-03] VITALS: Ht 160 cm; Wt 107.9 kg
[~2016-11-03 16:51] MED LIST changes: +AMOX-351 PO; -HYDR-3989 PO; +HYDR-4246 PO; -ONDA4TAB7 PO
[2016-11-03 16:53] VITALS: Ht 160 cm; Wt 107.9 kg
--- OUTSIDE RECORDS SUMMARY | 2016-11-03 16:56 | XMS REPORT | Continuity of Care Document ---
Author Author [facility] Organization [facility] Address Unknown Phone Unavailable Support Name Relationship Address Phone OCTOBER, ETTA Stewart DO Caregiver [address] [place] [address] Unavailable LUZ ELENA PLASCENCIA FACS, MD Caregiver [address] [place] [address] [place] [address] Unavailable LUZ ELENA PLASCENCIA FACS, MD Caregiver [address] [place] [address] [place] [address] Unavailable KESHAWN DEE Caregiver [address] [place] [address] Unavailable AMRICRUZ NUÑEZ Next Of Kin [address] [place], [place] [id number] Insurance Providers Guarantor Grisel Ruggiero Address [address] [address] Email [email or web address] [facility] Policy Number [id number] Subscriber's Name Grisel Ruggiero Relationship 18 Self Group Number [id number] Advance Directives Directive Response Recorded Date/Time Advanced Directives Type None 10/14/16 10:15pm Ordered Resuscitation Status Full Code 10/15/16 12:25am Resuscitation Documents on File No 10/15/16 1:15am DPOA for Healthcare Only No 10/15/16 10:46am Living Will No 10/15/16 1:15am Problems Active Problems Medical Problem Onset Date Status Acid reflux Unknown Chronic Anemia Unknown Chronic Borderline diabetes Unknown Chronic Cholecystitis, acute with cholelithiasis Unknown Resolved Hypernatremia Unknown Acute Iron deficiency anemia Unknown Acute Morbid obesity with BMI of 40.0-44.9, adult Unknown Chronic Murmur, cardiac Unknown Chronic Viral upper respiratory infection Unknown Acute Viral upper respiratory infection Unknown Acute Past Problems Medical Problem Onset Date Cholecystitis Unknown Gastroenteritis Unknown Medications Current Home Medications Medication Dose Units Route Directions Days Qty Instructions Start Date Amoxicillin/Potassium Clav (Augmentin 875-125 Tablet) 1 Each Tablet 1 Tab Oral Every 12 Hours 7 Days 14 Tablet TAKE WITH MEALS 10/17/16 Hydrocodone/Acetaminophen (Newbury 5-325 Tablet) 5-325 Tablet 1-2 Tab Oral Every 5 Hours as needed for Pain 30 Tablet 10/17/16 Ibuprofen 200 Mg Tablet 800 Mg Oral Every 6 Hours 10/08/16 Phentermine Hcl 37.5 Mg Capsule 37.5 Mg Oral Daily 10/08/16 Simethicone (Gas-X) 125 Mg Capsule 125 Mg Oral As Needed 10/08/16 Past Home Medications Medication Directions Ordered Status Acetaminophen/Hydrocodone Bitart (Newbury 5-325 Tablet) 5-325 Tablet, 1-2 Tab Oral Every 6 Hours as needed for Pain 10/08/16 Discontinued Ondansetron (Zofran Odt) 4 Mg Tab.rapdis, 4 Mg Oral Q6h/0300,0900,1500,2100 as needed for Nausea &/Or Vomiting 10/08/16 Discontinued Social History Social History Problem Response Recorded Date/Time Onset Date Status Reason for Hospitalization cholecystitis 10/17/2016 4:36pm Not Applicable Not Applicable Hx Substance Use No 10/14/2016 11:46pm Not Applicable Not Applicable Hx Alcohol Use No 10/14/2016 11:46pm Not Applicable Not Applicable Has the pt used tobacco in the last 12 months Yes 10/15/2016 1:15am Not Applicable Not Applicable Tobacco Usage none 09/17/2014 7:27am Not Applicable Not Applicable Anastasiya Appointment - Anastasiya Will Call Patient LEFT THE MATERIAL IN FOLDER WITH PT AND WILL FOLLOW UP WITH HER LATER, SHE IS GETTING A IV PLACED 2016 4:36pm Not Applicable Not Applicable Query Response Start Date Stop Date Smoking Status Former smoker Hospital Discharge Instructions Instructions: Care Instructions: Reason for Hospitalization: cholecystitis I was in the hospital because (patient own words): PAIN IN THE ABDOMEN Discharge Diet: regular Discharge Activity: Do not drive, operate machinery for 24 hours after surgery or while taking pain medication. No lifting more than 25 pounds for 4 weeks. Follow Up Appointments: Follow up with Elsi Bernal APRN/Dr. Plascencia on October 30 at 11:30 am. Appointment to follow anemia, with Keshawn Dee on October 24 at 2:45 pm Appointment for drain managment with Dr. Plascencia October 19 at 2:00 pm. Bring the drainage record with you. Anastasiya Appointment - Anastasiya Will Call Patient: LEFT THE MATERIAL IN FOLDER WITH PT AND WILL FOLLOW UP WITH HER LATER, SHE IS GETTING A IV PLACED Pending Lab / Results: Will be notified Patient Instructions: May Shower No Bathing or swimming. Wound/Incision Care: Leave incision open to air. Do not rub or pick off the glue. Pain Scale Utilized to Educate Patient: 0-10 Pain Scale Pain Management/Treatment: Follow prescriptions as prescribed Expected Signs/Symptoms: gradual decrease in incisional pain. a nodule will form under each incision in about 4-5 days, this is normal. Notify Physician If: 1. Call your surgeon if you are having problems relating to your surgery at [phone]. 2. Problems such as: Temp above 101.5 degrees You develop redness, excessive swelling of the incision, increasing pain or excessive foul smelling drainage. 3. If the office is closed, call [facility] at [phone] and have your Surgeon paged. During Business Hours:: Call your surgeon at at [phone]. After Business Hours:: If the office is closed, call [facility] at [phone] and have your Surgeon paged. Condition at time of discharge: Good Plan of Care Discharge Date 10/17/16 4:54pm Disposition 01 DISCHARGED HOME, SELF-CARE Instructions/Education Provided Cholecystitis (ED) Joe-French Drain Care (GEN) Laparoscopic Cholecystectomy (DC) Prescriptions See Medication Section Care Plan and Goals See Discharge Instructions Section Functional Status Query Response Date Recorded Mobility Status Ambulatory October 17, 2016 4:36pm Assistive Devices None October 17, 2016 4:36pm Activity Limitations None October 17, 2016 4:36pm Feeding Ability Independent October 17, 2016 4:36pm Toileting Ability Independent October 17, 2016 4:36pm Grooming Ability Independent October 17, 2016 4:36pm Dressing Ability Independent October 17, 2016 4:36pm Driving Ability Independent October 17, 2016 4:36pm Housework Ability Independent October 17, 2016 4:36pm Meal Preparation Ability Independent October 17, 2016 4:36pm Stair Climbing Ability Independent October 17, 2016 4:36pm Ability to complete ADL's impeded by No change October 17, 2016 4:36pm Cognitive/Perceptual Impairments Impaired vision October 17, 2016 4:36pm Visual Assistive Devices Glasses With patient October 15, 2016 1:15am Preferred Method of Learning Hands on October 15, 2016 1:15am Allergies, Adverse Reactions, Alerts Allergen Type Severity Reaction Status Last Updated Ondansetron Allergy Intermediate Severe Headache Active 10/17/16 Immunizations Query Response on File Recorded Date/Time Hx Influenza Vaccination No 10/15/16 1:15am Hx Pneumococcal Vaccination No 10/15/16 1:15am Hx Influenza Vaccination No 10/15/16 1:15am Influenza Vaccine Hx no 10/14/16 11:46pm Tetanus Diptheria Vaccine History 201410/14/16 11:46pm Vital Signs Acute Vital Signs Vital Response Date/Time Temperature (Fahrenheit) 98.8 deg F (96.8 - 99.1) 10/17/2016 9:04am Temperature (Calculated Celsius) 37.56753 degrees C (36.0 - 37.3) 10/17/2016 9:04am Temperature Source Oral 10/16/2016 3:35pm Pulse Rate (adult) 63 bpm (60 - 100) 10/17/2016 4:00pm Respiratory Rate 16 breaths/min (10 - 20) 10/17/2016 4:00pm O2 Sat by Pulse Oximetry 96 % (90 - 100) 10/17/2016 4:00pm Oxygen Delivery Method Room Air 10/16/2016 6:05pm Oxygen Delivery Method Room Air 10/17/2016 4:00pm Blood Pressure 143/82 mm Hg 10/17/2016 4:00pm Blood Pressure Source Automatic Cuff 10/17/2016 4:00pm Height (Feet) 5 feet 10/17/2016 8:30am Height (Inches) 3.00 inches 10/17/2016 8:30am Weight (Kilograms) 110.100 kg 10/17/2016 9:07am Body Mass Index (BMI) 41.8 10/15/2016 1:15am Results Laboratory Results Test Name Result Units Flags Reference Collection Date/Time Result Date/ Time Comments Urine WBC 3-5 /HPF 0-5 10/08/2016 11:32am 10/08/2016 12:03pm Urine RBC 50-200 /HPF H 0-3 10/08/2016 11:32am 10/08/2016 12:03pm Urine Squamous Epithelial Cells 0-5 10/08/2016 11:32am 10/08/2016 12:03pm Urine Bacteria TRACE H NEGATIVE 10/08/2016 11:32am 10/08/2016 12:03pm Urine Culture Indicated CULT NOT INDICATED 10/08/2016 11:32am 10/08 12:03pm White Blood Count 7.3 T/MM3 4.5-11.0 10/17/2016 8:33am 10/17/2016 8: 48am Red Blood Count 4.16 M/MM3 4.00-5.20 10/17/2016 8:33am 10/17/2016 8: 48am Hemoglobin 9.0 GM/DL L 12-16 10/17/2016 8:33am 10/17/2016 8:48am Hematocrit 30.0 % L 36-46 10/17/2016 8:33am 10/17/2016 8:48am Mean Corpuscular Volume 72.1 UM3 L 80-100 10/17/2016 8:33am 10/17/2016 8 :48am Mean Corpuscular Hemoglobin 21.6 UUG L 26-34 10/17/2016 8:33am 2016 8:48am Mean Corpuscular Hemoglobin Concent 30.0 GM/DL L 31-37 10/17/2016 8:3310/17/2016 8:48am RDW Standard Deviation 43.9 FL 36.9-50.2 10/17/2016 8:33am 10/17/2016 8 :48am Platelet Count 255 T/MM3 130-400 10/17/2016 8:3310/17/2016 8:48am Mean Platelet Volume 10.6 UM3 9.4-12.4 10/17/2016 8:33am 10/17/2016 8: 48am Neutrophils (%) (Auto) 78.7 % H 33-66 10/17/2016 8:3310/17/2016 8: 48am Lymphocytes (%) (Auto) 16.3 % L 23-45 10/17/2016 8:33am 10/17/2016 8: 48am Monocytes (%) (Auto) 4.5 % 0-9.0 10/17/2016 8:33am 10/17/2016 8:48am Eosinophils (%) (Auto) 0.3 % 0-4 10/17/2016 8:33am 10/17/2016 8:48am Basophils (%) (Auto) 0.1 % 0-2 10/17/2016 8:3310/17/2016 8:48am Immature Granulocyte % (Auto) 0.1 % 0.0-0.5 10/17/2016 8:2016 8:48am Absolute Neutrophils (auto) 5.7 T/MM3 1.8-7.7 10/17/2016 8:2016 8:48am Absolute Lymphocytes (auto) 1.2 T/MM3 1-4.8 10/17/2016 8:2016 8:48am Absolute Monocytes (auto) 0.3 T/MM3 0-0.8 10/17/2016 8:10/17/2016 8:48am Absolute Eosinophils (auto) 0.0 T/MM3 0-0.5 10/17/2016 8:2016 8:48am Absolute Basophils (auto) 0.0 T/MM3 0-0.2 10/17/2016 8:10/17/2016 8:48am Absolute Immature Granulocyte (auto 0.01 T/MM3 0.00-0.03 10/17/2016 8: 10/17/2016 8:48am Absolute Reticulocyte Count 0.0344 T/MM3 0.0300-0.0900 10/15/2016 4: 10/15/2016 8:51am Percent Reticulocyte Count 0.8 % 0.6-1.7 10/15/2016 4:10/15/2016 8 :51am Immature Reticulocyte Fraction 12.3 % 3.3-14.5 10/15/2016 4:2016 8:51am Reticulocyte Hgb Content (CHr) 18.0 PG L 30.8-36.6 10/15/2016 4: 8:51am Icterus Index < 2 0-7 10/17/2016 8:10/17/2016 8:59am Chemistry Specimen Hemolysis < 15 0-25 10/17/2016 8:10/17/2016 8 :59am 0-25: Specimen Exhibited No Hemolysis. Turbidity < 20 0-20 10/17/2016 8:10/17/2016 8:59am Sodium Level 144 MEQ/L 134-144 10/17/2016 8:10/17/2016 8:59am Potassium Level 3.6 MEQ/L 3.6-5 10/17/2016 8:33am 10/17/2016 8:59am Chloride Level 104 MEQ/L 98-107 10/17/2016 8:33am 10/17/2016 8:59am Carbon Dioxide Level 29 MEQ/L 22-30 10/17/2016 8:33am 10/17/2016 8: 59am Anion Gap 11 MEQ/L 5-15 10/17/2016 8:33am 10/17/2016 8:59am Blood Urea Nitrogen 6.0 MG/DL L 7-10/17/2016 8:33am 10/17/2016 8: 59am Creatinine 0.8 MG/DL 0.7-1.2 10/17/2016 8:33am 10/17/2016 8:59am BUN/Creatinine Ratio 8 RATIO -10/17/2016 8:33am 10/17/2016 8:59am Glomerular Filtration Rate Calc 80 10/17/2016 8:33am 10/17/2016 8: 59am Glucose Level 109 MG/DL 65-110 10/17/2016 8:33am 10/17/2016 8:59am Calculated Osmolality 276 MOSM/KG 261-280 10/17/2016 8:33am 10/17/2016 8:59am Calcium Level 8.7 MG/DL 8.4-10.2 10/17/2016 8:3310/17/2016 8:59am Total Bilirubin 0.60 MG/DL 0.20-1.30 10/17/2016 8:3310/17/2016 8: 59am Alkaline Phosphatase 68 U/L 38-126 10/17/2016 8:3310/17/2016 8:59am Total Protein 6.3 G/DL 6.3-8.2 10/17/2016 8:3310/17/2016 8:59am Albumin 3.2 G/DL L 3.5-5.0 10/17/2016 8:33am 10/17/2016 8:59am Globulin 3.1 G/DL 2.4-3.6 10/17/2016 8:33am 10/17/2016 8:59am Albumin/Globulin Ratio 1.0 RATIO L 1.1-2.2 10/17/2016 8:33am 10/17/2016 8:59am Aspartate Amino Transf (AST/SGOT) 15 U/L D 14-36 10/17/2016 8:33am 2016 9:06am Alanine Aminotransferase (ALT/SGPT) 24 U/L 9-52 10/17/2016 8:33am 10/17 8:59am Lipase 31 U/L 23-300 10/14/2016 11:14pm 10/14/2016 11:28pm Iron Level 16 UG/DL L 37-170 10/15/2016 4:27am 10/17/2016 3:39am Total Iron Binding Capacity 424 UG/DL 261-497 10/15/2016 4:27am 2016 3:46am Ferritin 14.4 NG/ML 6-137 10/15/2016 4:10/17/2016 4:23am Vitamin B12 Level 325 PG/ML 239-931 10/15/2016 4:27am 10/17/2016 4: 53am Folate 9.5 NG/ML 2.76-20 10/15/2016 4:27am 10/17/2016 4:53am NORMAL ADULT RANGE: 2.76->20 ng/mL Thyroid Stimulating Hormone (TSH) 1.98 MIU/L 0.47-4.68 10/16/2016 4: am 10/16/2016 5:52am Hemoglobin A1c 5.4 % L 6.1-7.9 10/15/2016 4:am 10/15/2016 10:47am < 6.0 NON-DIABETIC RANGE 6.1-7.9 [employer] TARGET RANGE >8.0 ACTION SUGGESTED Urine Collection Type CLEANCATCH-MIDSTREAM 10/14/2016 11:14pm 10/14 11:19pm Urine Color YELLOW YELLOW 10/14/2016 11:14pm 10/14/2016 11:19pm Urine Turbidity CLEAR CLEAR 10/14/2016 11:14pm 10/14/2016 11:19pm Urine Specific Lissie 1.010 L 1.015-1.025 10/14/2016 11:14pm 2016 11:19pm Urine pH 7.0 5.0-8.0 10/14/2016 11:14pm 10/14/2016 11:19pm Urine Leukocyte Esterase NEGATIVE NEGATIVE 10/14/2016 11:14pm 2016 11:19pm Urine Nitrite NEGATIVE NEGATIVE 10/14/2016 11:14pm 10/14/2016 11: 19pm Urine Protein NEGATIVE NEGATIVE 10/14/2016 11:14pm 10/14/2016 11: 19pm Urine Glucose (UA) NEGATIVE NEGATIVE 10/14/2016 11:14pm 10/14/2016 11 :19pm Urine Ketones NEGATIVE NEGATIVE 10/14/2016 11:14pm 10/14/2016 11: 19pm Urine Urobilinogen 1.0 EU/DL NORMAL 10/14/2016 11:14pm 10/14/2016 11: 19pm Urine Bilirubin NEGATIVE NEGATIVE 10/14/2016 11:14pm 10/14/2016 11: 19pm Urine Blood NEGATIVE NEGATIVE 10/14/2016 11:14pm 10/14/2016 11:19pm Urinalysis Comment MICROSCOPIC NOT IND. 10/14/2016 11:14pm 2016 11:19pm Glucometer 102 mg/dL 65-110 10/17/2016 5:59am 10/17/2016 6:01am Name: GRISEL RUGGIERO Unit #: [id number] : 1975 Sex: F Admit Date: 10/15/16 Loc / Svc: SRG Discharge Date: DIAGNOSTIC IMAGING REPORT Report #: [id number] [facility] Jan JENNIFER Indication: ITS.REASON: Abd pain; pos Stokes's PROCEDURE: CT ABD/PELVIS W/CONTRAST ONLY: Encounter: Initial Comparison: None Technique: Axial CT images were performed through the abdomen and pelvis after the administration of intravenous contrast. Coronal and sagittal two-dimensional reformats. Automated Exposure Control and Iterative Reconstruction dose reducing techniques were utilized. Contrast: Omnipaque 300 93 mL Findings: The included portions of the lung bases are clear. Heart size normal. No pleural effusion. Liver is fairly homogeneous. The spleen is mildly enlarged. The gallbladder is distended with some pericholecystic fluid and gallbladder wall thickening as well as some dependent sludge or noncalcified gallstones. The CBD is not definitely enlarged. The pancreas is normal in contour. Adrenal glands are normal. Kidneys enhance homogeneously and symmetrically without perinephric collection or hydronephrosis. The abdominal aorta is nonaneurysmal without significant calcific atherosclerotic disease. No retroperitoneal or mesenteric adenopathy. Pelvis: The uterus is tilted slightly to the right. No free fluid. No pelvic sidewall adenopathy. No significant distal colonic diverticulosis or evidence of diverticulitis. A normal appendix is identified. No definite bony destructive process. Impression: Suspect acute versus chronic cholecystitis. . Procedures Procedure Status Date Provider(s) Place needle in vein Completed 10/08/16 X-ray exam of abdomen Completed 10/08/16 Comprehen metabolic panel Completed 10/08/16 Urinalysis auto w/scope Completed 10/08/16 Assay of lipase Completed 10/08/16 Complete cbc w/auto diff wbc Completed 10/08/16 Hydrate iv infusion add-on Completed 10/08/16 Ther/proph/diag inj iv push Completed 10/08/16 Tx/pro/dx inj new drug addon Completed 10/08/16 Emergency dept visit Completed 10/08/16 249945"INJECTION, ONDANSETRON HYDROCHLORIDE, PER 1 MG" Completed 10/08/16 145802"INFUSION, NORMAL SALINE SOLUTION , 1000 CC" Completed 10/08/16 Robot-assisted cholecystectomy Completed 10/16/16 LUZ ELENA PLASCENCIA MD, FACS , CWS Encounters Encounter Location Arrival/Admit Date Discharge/Depart Date Attending Provider Discharged Inpatient [facility] 10/15/16 12:27am 10/17/16 4:54pm LUZ ELENA PLASCENCIA FACS, MD Departed Emergency Room [facility] 10/08/16 10:12am 10/08/16 2: 20pm SAJAN BELL MD
--- OUTSIDE RECORDS SUMMARY | 2016-11-03 16:56 | XMS REPORT | Continuity of Care Document ---
Author Author [facility] Organization [facility] Address Unknown Phone Unavailable Support Name Relationship Address Phone FABIAN FIGUEROA MD Caregiver [address] [place] [address] [place] [phone] SALVADOR TORRES Next Of Kin [address] [facility] [address] [place] [address] Advance Directives Directive Response Recorded Date/Time Advanced [...] F (96.8 - 99.1) Temperature (Calculated Celsius) 36.90734 degrees C (36.0 - 37.3) Pulse Rate [...] or prior exposure. Measles IgG performed at [facility], [address] [place] [address] Germination Testing Manager Renalod Olivarez, Mumps IgG Antibody Index September 01, 2014 11:48am 0.94 OD Ratio L - Mumps IgG performed at [facility], [address] [place], [place] [address]Medical Director Renaldo Olivarez, Mumps Virus IgG Antibody September 01, 2014 11:48am Equivocal H - Rubella Screen September 01, 2014 11:48am Positive - Rubeola (Measles) IgG Ab Index September 01, 2014 11:48am 1.32 OD Ratio - Measles IgG performed at [facility], [address] [place], [place] [address]Medical Director Renaldo Olivarez, Rubeola (Measles) IgG Antibody September 01, 2014 11:48am Positive - TB Test (T-Spot) September 01, 2014 11:48am Negative - It is recommended that Borderline and Invalid results beretested with a new speicmen. T-SPOT TB tested at [facility], [address] [place] [address]. CLIA#[id number] Varicella-Zoster IgG Ab Index Value September 01, 2014 11:48am 2.25 OD Ratio - Varicella Zoster IGG performed at [facility], [address] [place] [address] Germination Testing Manager Renaldo Olivarez DO Varicella-Zoster IgG Antibody September 01, 2014 11:48am Positive - Name: SAFIA RUGGIERO Jenniffer Unit #: [id number] : 1975 Sex: F Loc / Svc: ED DOS: 09/17/14 Signed Report #: [id number] DIAGNOSTIC IMAGING REPORT TYPE OF EXAM: CHEST, [...] Encounters Encounter Location Date/Time Registered Emergency Room [facility] 09/17/14 7:03am Recent Diagnosis
--- OUTSIDE RECORDS SUMMARY | 2016-11-03 17:06 | XMS REPORT | Continuity of Care Document ---
Author Author [facility] Organization [facility] Address Unknown Phone Unavailable Support Name Relationship Address Phone FABIAN FIGUEROA MD Caregiver [address] [place] [address] [place] [phone] SALVADOR TORRES Next Of Kin [address] [facility] [address] [place] [address] Advance Directives Directive Response Recorded Date/Time Advanced [...] F (96.8 - 99.1) Temperature (Calculated Celsius) 36.14548 degrees C (36.0 - 37.3) Pulse Rate [...] or prior exposure. Measles IgG performed at [facility], [address] [place] [address] Extractor Tender Raw Stock Renaldo Olivarez, Mumps IgG Antibody Index September 01, 2014 11:48am 0.94 OD Ratio L - Mumps IgG performed at [facility], [address] [place], [place] [address]Medical Director Renaldo Olivarez, Mumps Virus IgG Antibody September 01, 2014 11:48am Equivocal H - Rubella Screen September 01, 2014 11:48am Positive - Rubeola (Measles) IgG Ab Index September 01, 2014 11:48am 1.32 OD Ratio - Measles IgG performed at [facility], [address] [place], [place] [address]Medical Director Renaldo Olivarez, Rubeola (Measles) IgG Antibody September 01, 2014 11:48am Positive - TB Test (T-Spot) September 01, 2014 11:48am Negative - It is recommended that Borderline and Invalid results beretested with a new speicmen. T-SPOT TB tested at [facility], [address] [place] [address]. CLIA#[id number] Varicella-Zoster IgG Ab Index Value September 01, 2014 11:48am 2.25 OD Ratio - Varicella Zoster IGG performed at [facility], [address] [place] [address] Extractor Tender Raw Stock Renaldo Olivarez DO Varicella-Zoster IgG Antibody September 01, 2014 11:48am Positive - Name: SAFIA RUGGIERO Jenniffer Unit #: [id number] : 1975 Sex: F Loc / Svc: ED DOS: 09/17/14 Signed Report #: [id number] DIAGNOSTIC IMAGING REPORT TYPE OF EXAM: CHEST, [...] Encounters Encounter Location Date/Time Registered Emergency Room [facility] 09/17/14 7:03am Recent Diagnosis
--- NOTE | 2016-11-03 17:12 | ERPDOC ---
Departure Disposition Decision Date: November 03, 2016 Disposition Decision Time: 18:11 Disposition: 01 DISCHARGED HOME, SELF-CARE Impression Impression Impression: Primary Impression: Abdominal pain Abdominal location: epigastric Qualified Codes: R10.13 - Epigastric pain Severity: Moderate Condition: Stable Seen By: Mid-level only Referrals: KESHAWN DEE (Family) Patient Instructions: Abdominal Pain (ED) Problems/Meds/Labs Reviewed?: Yes Medications reviewed and manag: Yes Additional Instructions: Continue to monitor your pain at home. I do want you to return to ER with any fever, vomiting, severe pain, or any other concerns. May take the Compazine as needed for nausea or the Kinsman for pain. Follow up care ordered?: Yes Mental Status: Alert Scripts Prochlorperazine Maleate (Compazine) 10 Mg Tablet 10 MG PO TID, #7 TAB 0 Refills Take 1 tablet, by mouth, 3 times a day. Prov: TANIA TORRES APRN 11/03/16 Hydrocodone/Acetaminophen (Kinsman 5-325 Tablet) 5-325 Tablet 1 TAB PO Q6H Y for PAIN, #6 TAB 0 Refills Prov: TANIA TORRES APRN 11/03/16 HPI - Abdominal Pain General Chief Complaint: Abdominal Pain Stated Complaint: STOMACH CRAMPING,SHAKING & SWEATING Time Seen by Provider: 17:02 Source: patient History/Exam Limitations: no limitations HPI - Abdominal Pain Initial Comments She had onset of abdominal pain in the epigastric region a few hours ago. She had eaten some cereal for breakfast but nothing for lunch. Had onset of the pain and tried to eat but then the pain got worse and she became nauseated. She denies any fever or chills. Has not been having any diarrhea or constipation at all. Did have her gallbladder taken out a few weeks ago. Had to have some blood transfusions and iron infusion with the surgery. Occurred At: home Onset: Rapid Duration: 1 hr Quality: sharpness Location: epigastric Radiation: back Activities at Onset: none Associated Symptoms: nausea/vomiting (nausea, vomiting), DENIES: back pain, chest pain, diaphoresis, fatigue, fever/chills, headache, heartburn, rash, shortness of breath, swelling/mass in abdomen, syncope, weakness Allergies: Coded Allergies: ondansetron (Verified Allergy, Intermediate, Severe Headache, 11/03/16) Past History Patient Surgical History BTL Past Medical History Metabolic: diabetes Surgical History Denies Surgeries Reproductive/: tubal ligation Vaccines Hx Influenza Vaccination: No Hx Pneumococcal Vaccination: No Social History Does patient use chewing tobac: No Second Hand Exposure: No Substance Use Type: does not use Substance last used: unknown Alcohol Intake: none Last Drink: unknown Marital Status: Review of Systems Constitutional Constitutional: DENIES: chills, dizziness, fatigue, fever, weakness Cardiovascular Cardiac: DENIES: chest pain, orthopnea Rhythm/Rate: DENIES: irregular beat, palpitations Pulmonary Respiratory: DENIES: cough, dyspnea, sputum, tachypnea GI Upper Abdomen: nausea, pain, DENIES: vomiting Lower Abdomen: DENIES: constipation, diarrhea, pain Integumentary Skin: DENIES: rash Neurological General: DENIES: headache, numbness, tingling, weakness Physical Exam General General Nourishment: well nourished, well developed, appears stated age, no acute distress, adult General Body Habitus: well groomed Vitals and Pain First Documented Vital Signs Date Time Temp Pulse Resp B/P Pulse Ox O2 Delivery O2 Flow Rate FiO2 11/03/16 16:53 98.1 76 20 163/88 100 Room Air Weight: Kilograms: 107.900 Height (feet): 5 Height (inches): 3.00 Triage Pain Scale: RN VS reviewed by Provider: Yes Normal Exams: Neck: Full range of motion, without adenopathy, JVD, bruits or thyromegaly Chest/Resp: Clear all ayers, with good airflow, and symmetry bilaterally CV: Regular rate and rhythm, without murmur or gallop, Pulses 2+ all extremities, capillary refill, <2 seconds all ext., no pedal edema noted Abdomen: Bowel sounds positive, non-distended, no hepatosplenomegaly, masses or bruits noted Lymphatic: No lymphadenopathy, or lymphedema noted Integumentary: No rashes, hives, or bruising noted Neurologic: Patient is alert, and oriented Psychiatric: Patient exhibits, appropriate attention, emotion and affect Abdomen Inspection: NOT FOUND: distention Palpation: FOUND: soft, tender (TTP in the epigastric region, moderately), voluntary guarding, NOT FOUND: involuntary guarding, rebound Auscultation: FOUND: normoactive Differential Diagnoses Considering: Bowel Obstruction, Constipation, Gastroenteritis, GERD, GI Bleed, Hepatitis, Hernia, Pancreatitis Progress Results/Orders Orders Procedure Category Date Status Time Cbc W/Auto LAB 11/03/16 Complete Diff-Reflex Manual Cmp - Comprehensive LAB 11/03/16 Complete Metabolic Lipase LAB 11/03/16 Complete Iv Lock (Ed Only) EDM 11/03/16 Transmitted 17:05 Normal Saline (Normal PHA 11/03/16 Complete Saline Iv) 17:15 Prochlorperazine PHA 11/03/16 Complete (Compazine) 17:15 Morphine Sulfate PHA 11/03/16 Complete (Morphine) 17:15 Lab Results Laboratory Tests Test 11/03/16 17:10 White Blood Count 10.5T/MM3 Red Blood Count 4.96M/MM3 Hemoglobin 12.0GM/DL Hematocrit 37.1% Mean Corpuscular Volume 74.8UM3 Mean Corpuscular Hemoglobin 24.2UUG Mean Corpuscular Hemoglobin Concent 32.3GM/DL RDW Standard Deviation 60.9FL Platelet Count 266T/MM3 Mean Platelet Volume 10.9UM3 Immature Granulocyte % (Auto) 0.3% Neutrophils (%) (Auto) 57.4% Lymphocytes (%) (Auto) 34.4% Monocytes (%) (Auto) 4.5% Eosinophils (%) (Auto) 3.1% Basophils (%) (Auto) 0.3% Absolute Immature Granulocyte (auto 0.03T/MM3 Absolute Neutrophils (auto) 6.0T/MM3 Absolute Lymphocytes (auto) 3.6T/MM3 Absolute Monocytes (auto) 0.5T/MM3 Absolute Eosinophils (auto) 0.3T/MM3 Absolute Basophils (auto) 0.0T/MM3 Turbidity < 20 Sodium Level 144MEQ/L Potassium Level 3.8MEQ/L Chloride Level 107MEQ/L Carbon Dioxide Level 22MEQ/L Anion Gap 15MEQ/L Blood Urea Nitrogen 16.0MG/DL Creatinine 0.8MG/DL Glomerular Filtration Rate Calc 80 BUN/Creatinine Ratio 20RATIO Glucose Level 123MG/DL Calculated Osmolality 279MOSM/KG Calcium Level 9.4MG/DL Total Bilirubin 0.90MG/DL Icterus Index < 2 Aspartate Amino Transf (AST/SGOT) 27U/L Alanine Aminotransferase (ALT/SGPT) 43U/L Alkaline Phosphatase 79U/L Total Protein 7.6G/DL Albumin 4.4G/DL Globulin 3.2G/DL Albumin/Globulin Ratio 1.4RATIO Lipase 77U/L Chemistry Specimen Hemolysis < 15 Medications Current ED Medications Sodium Chloride (Normal Saline IV) 1,000 ml @ 1,000 mls/hr Q1H ONCE IV Last administered on 11/03/16 17:16; Start 11/03/16 at 17:15; Stop 11/03/16 at 18:14 ; Status DC Prochlorperazine Edisylate (Compazine) 10 mg O ONCE IV Last administered on 17:17; Start 11/03/16 at 17:15; Stop 11/03/16 at 17:17; Status DC Morphine Sulfate (Morphine) 4 mg O ONCE IV Last administered on 11/03/16 17: 20; Start 11/03/16 at 17:15; Stop 11/03/16 at 17:17; Status DC Progress Progress Pain is completely gone and nausea is gone as well. WBC is normal, CMP and lipase is normal. Did talk with her about CT vs observation at home. She does prefer to go home at this time and monitor her symptoms since she is feeling much better. I did advise that if the pain returns, any nausea, or fever then to return to ER for reevaluation. TANIA TORRES APRN November 03, 2016 17:12
[2016-11-03] MEDS ORDERED: OMEP40CA52 PO (17:15)
[2016-11-03] MEDS ORDERED: NORMAL SALINE 1,000 ML IV ONE (17:15)
[2016-11-03] MEDS ORDERED: PROCHLORPERAZINE 10mg/2ml INJECTION IV ONE (17:15)
[2016-11-03] MEDS ORDERED: MORPHINE SULFATE 4 MG SYRINGE IV ONE (17:15)
[2016-11-03 17:22] LABS: BASOPHILS % (AUTO) 0.3 % (0-2); EOSINOPHILS # (AUTO) 0.3 T/MM3 (0-0.5); EOSINOPHILS % (AUTO) 3.1 % (0-4); HCT - HEMATOCRIT 37.1 % (36-46); IMMATURE GRANULOCYTE # (AUTO) 0.03 T/MM3 (0.00-0.03); IMMATURE GRANULOCYTE % (AUTO) 0.3 % (0.0-0.5); LYMPHOCYTES # (AUTO) 3.6 T/MM3 (1-4.8); LYMPHOCYTES % (AUTO) 34.4 % (23-45); MEAN CORPUSCULAR HGB 24.2 UUG (26-34); MEAN CORPUSCULAR HGB CONC(MCHC 32.3 GM/DL (31-37); MEAN CORPUSCULAR VOLUME 74.8 UM3 (80-100); MEAN PLATELET VOLUME 10.9 UM3 (9.4-12.4); MONOCYTES # (AUTO) 0.5 T/MM3 (0-0.8); MONOCYTES % (AUTO) 4.5 % (0-9.0); NEUTROPHILS % (AUTO) 57.4 % (33-66); RED BLOOD COUNT 4.96 M/MM3 (4.00-5.20); WBC - WHITE BLOOD COUNT 10.5 T/MM3 (4.5-11.0)
--- NOTE | 2016-11-03 17:38 | NUR ---
COMFORT PT IS MORE RELAXED & NOT WRITHING IN PAIN NOW.
[2016-11-03 17:59] LABS: ALBUMIN 4.4 G/DL (3.5-5.0); ALBUMIN/GLOBULIN RATIO 1.4 RATIO (1.1-2.2); ALKALINE PHOSPHATASE 79 U/L (38-126); ALT (SGPT) 43 U/L (9-52); ANION GAP 15 MEQ/L (5-15); AST (SGOT) 27 U/L (14-36); BUN/CREATININE RATIO 20 RATIO (6-26); CALCIUM 9.4 MG/DL (8.4-10.2); CHLORIDE 107 MEQ/L (98-107); CO2 - CARBON DIOXIDE 22 MEQ/L (22-30); CREATININE 0.8 MG/DL (0.7-1.2); GLOMERULAR FILTRATION RATE 80; GLUCOSE 123 MG/DL (65-110); LIPASE 77 U/L (23-300); POTASSIUM 3.8 MEQ/L (3.6-5); SODIUM 144 MEQ/L (134-144); TOTAL PROTEIN 7.6 G/DL (6.3-8.2)
--- NOTE | 2016-11-03 18:04 | NUR ---
REPORT TO HARPAL LUTZ
[2016-11-03] MEDS ORDERED: PROC-14 PO (18:14)
[2016-11-03] MEDS ORDERED: HYDR-4246 PO (18:14)
[2016-11-03 19:35] VITALS: BP 99/53; PULSE 62; RESP 16; TEMP 98.1; O2SAT 98
--- NOTE | 2016-11-03 19:35 | NUR ---
DEPART PT GIVEN DI FOR ABDOMINAL PAIN, NORCO, COMPAZINE, F/U. RX PROVIDED FOR NORCO AND COMPAZINE. PT VERBALIZES UNDERSTANDING OF DI. QUESTIONS ASKED/ANSWERED - DENIES FURTHER QUESTIONS/NEEDS AT THIS TIME. PT REPORTS IMPROVEMENT IN PAIN/NAUSEA. IV SITE REMOVED. PERSONAL BELONGINGS GATHERED. PT ESCORTED/AMBULATED TO ED EXIT - GAIT STABLE, NO SIGN OF DISTRESS AT THIS TIME.
== END 2016-11-03 19:35 | disposition home or self-care (01) ==
LOC: ED 16:51
DX: R10.13 Epigastric pain (principal); R11.0 Nausea
CPT/HCPCS: 80053; 83690; 85025; 96361; 96374; 96375; 99284; J0780; J7030